=== PATIENT | female | born 1960 | race Caucasian/White ===

== ENCOUNTER → 2021-09-09 17:07 | Outpatient (CLI) | payer BC, SELFPAY ==
[2021-09-09 15:09] LABS: Alanine Aminotransferase 39 U/L (12-78); Albumin Level 4.1 g/dl (3.5-5.0); Albumin/Globulin Ratio 1.6 (1.1-1.8); Alkaline Phosphatase 73 U/L (38-126); Anion Gap 11.7 mEq/L (5-15); Aspartate Amino Transferase 30 U/L (14-36); Bilirubin,Total 0.7 mg/dl (0.2-1.3); Blood Urea Nitrogen 19 mg/dl (7-17); Calcium 9.7 mg/dl (8.4-10.2); Carbon Dioxide 25 mmol/L (22.0-30.0); Chloride 106 mmol/L (98-107); Chol/HDL Ratio 3.6 (1-3.5); Cholesterol 170 mg/dl (140-200); Estimated Glomerular Filt Rate 72 ml/min (>60); GFR (African American) 88 ML/MIN (>60); Globulin 2.6 g/dL (1.3-3.2); Glucose 145 mg/dl (74-100); HDL Cholesterol 47 mg/dl (40-60); Potassium 4.7 mmoL/L (3.5-5.1); Sodium 138 mmol/L (136-145); Total Protein,Serum 6.7 g/dl (6.3-8.2); Triglycerides 106 mg/dl (30-150); VLDL Cholesterol 21 mg/dL (0-40)
[2021-09-09 15:20] LABS: Direct LDL Cholesterol 90.38 mg/dL (100-129)
[2021-09-09 15:27] LABS: 25-OH Vitamin D, Total 53.3 ng/mL (30-100)
[2021-09-09 15:39] LABS: Thyroid Stimulating Hormone 0.21 uIU/mL (0.465-4.68)
== END ==
PROVIDERS: PCP Family Medicine; Visit Provider Family Medicine
DX: Z00.00 Encounter for general adult medical examination without abnormal findings (principal); I89.0 Lymphedema, not elsewhere classified; Z85.3 Personal history of malignant neoplasm of breast
CPT/HCPCS: 80053; 80061; 82306; 84443

== ENCOUNTER → 2022-09-16 12:05 | Outpatient (CLI) | payer BC, SELFPAY ==
[2022-09-16 18:22] LABS: Basophils % 0.4 % (0.1-2.0); Eosinophils # 0.1 K/mm3 (0.0-0.4); Hematocrit 46.5 % (37.0-47.0); Hemoglobin 14.9 g/dL (12.2-16.2); Lymphocytes # 2.2 K/mm3 (0.7-4.5); Lymphocytes % 33.2 % (10-50); Mean Corpuscular Hemoglobin 28.3 pg (27.0-31.2); Mean Corpuscular Volume 88.6 fl (81-99); Mean Platelet Volume 9.7 fl (7.4-10.4); Monocytes # 0.4 K/mm3 (0.1-1.0); Monocytes % 6.6 % (1.7-9.3); Neutrophils # 3.8 K/mm3 (1.8-7.8); Neutrophils % 58.8 % (37.0-80.0); Platelet Count 215 K/mm3 (142-424); Red Blood Count 5.24 M/mm3 (4.20-5.40); Red Cell Distribution Width 13.5 % (11.5-17.5); White Blood Count 6.5 K/mm3 (4.8-10.8)
[2022-09-16 18:50] LABS: Alanine Aminotransferase 40 U/L (12-78); Albumin Level 4.6 g/dl (3.5-5.0); Albumin/Globulin Ratio 1.6 (1.1-1.8); Alkaline Phosphatase 84 U/L (38-126); Anion Gap 11.6 mEq/L (5-15); Aspartate Amino Transferase 30 U/L (14-36); Bilirubin,Total 0.8 mg/dl (0.2-1.3); Blood Urea Nitrogen 18 mg/dl (7-17); Carbon Dioxide 29 mmol/L (22.0-30.0); Chloride 106 mmol/L (98-107); Chol/HDL Ratio 3.4 (1-3.5); Cholesterol 196 mg/dl (140-200); Estimated Glomerular Filt Rate 72 ml/min (>60); GFR (African American) 87 ML/MIN (>60); Globulin 2.8 g/dL (1.3-3.2); Glucose 119 mg/dl (74-100); HDL Cholesterol 57 mg/dl (40-60); Potassium 4.6 mmoL/L (3.5-5.1); Sodium 142 mmol/L (136-145); Total Protein,Serum 7.4 g/dl (6.3-8.2); Triglycerides 137 mg/dl (30-150); VLDL Cholesterol 27 mg/dL (0-40)
[2022-09-16 19:03] LABS: Direct LDL Cholesterol 100.87 mg/dL (100-129)
== END ==
PROVIDERS: PCP Family Medicine; Visit Provider Family Medicine
DX: E11.9 Type 2 diabetes mellitus without complications (principal); Z79.84 Long term (current) use of oral hypoglycemic drugs; Z79.899 Other long term (current) drug therapy
CPT/HCPCS: 80053; 80061; 83036; 84443; 85025

== ENCOUNTER 2023-06-14 18:00 | Outpatient (CLI) | payer MEDICARE, SELFPAY ==
[2023-06-14 18:25] LABS: Basophils # 0.1 K/mm3 (0-0.2); Eosinophils # 0.2 K/mm3 (0.0-0.4); Eosinophils % 2.2 % (0.1-12.0); Hematocrit 44.3 % (37.0-47.0); Hemoglobin 14.6 g/dL (12.2-16.2); Lymphocytes # 2.2 K/mm3 (0.7-4.5); Lymphocytes % 33.6 % (10-50); Mean Corpuscular HGB Conc 32.9 g/dL (31.8-35.4); Mean Corpuscular Hemoglobin 29.9 pg (27.0-31.2); Mean Corpuscular Volume 90.7 fl (81-99); Mean Platelet Volume 9.7 fl (7.4-10.4); Monocytes # 0.5 K/mm3 (0.1-1.0); Monocytes % 6.8 % (1.7-9.3); Neutrophils # 3.7 K/mm3 (1.8-7.8); Neutrophils % 56.4 % (37.0-80.0); Platelet Count 214 K/mm3 (142-424); Red Blood Count 4.88 M/mm3 (4.20-5.40); Red Cell Distribution Width 13.8 % (11.5-17.5); White Blood Count 6.5 K/mm3 (4.8-10.8)
[2023-06-14 18:50] LABS: Alanine Aminotransferase 39 U/L (12-78); Albumin Level 4.4 g/dl (3.5-5.0); Albumin/Globulin Ratio 1.8 (1.1-1.8); Alkaline Phosphatase 73 U/L (38-126); Anion Gap 9.8 mEq/L (5-15); Aspartate Amino Transferase 30 U/L (14-36); Blood Urea Nitrogen 16 mg/dl (7-17); Calcium 10.4 mg/dl (8.4-10.2); Carbon Dioxide 29 mmol/L (22.0-30.0); Chloride 105 mmol/L (98-107); Chol/HDL Ratio 3.3 (1-3.5); Cholesterol 180 mg/dl (140-200); Estimated Glomerular Filt Rate 72 ml/min (>60); GFR (African American) 87 ML/MIN (>60); Globulin 2.4 g/dL (1.3-3.2); Glucose 140 mg/dl (74-100); HDL Cholesterol 54 mg/dl (40-60); Potassium 4.8 mmoL/L (3.5-5.1); Sodium 139 mmol/L (136-145); Total Protein,Serum 6.8 g/dl (6.3-8.2); Triglycerides 116 mg/dl (30-150); VLDL Cholesterol 23 mg/dL (0-40)
[2023-06-14 19:01] LABS: Direct LDL Cholesterol 98.18 mg/dL (100-129)
[2023-06-14 19:17] LABS: Hemoglobin A1C 7.6 % (4.0-6.0)
[2023-06-14 19:21] LABS: Thyroid Stimulating Hormone 0.47 uIU/mL (0.465-4.68)
== END 2023-06-14 23:59 | disposition home or self-care (01) ==
LOC: LAB.DROPOF 06-15 07:52
PROVIDERS: PCP Family Medicine; Visit Provider Family Medicine
DX: E11.9 Type 2 diabetes mellitus without complications (principal); Z79.84 Long term (current) use of oral hypoglycemic drugs; Z79.899 Other long term (current) drug therapy
CPT/HCPCS: 80053; 80061; 83036; 84443; 85025

== ENCOUNTER 2023-09-23 10:16 | Outpatient (CLI) | payer MEDICARE, SELFPAY ==
[2023-09-23 19:44] LABS: Alanine Aminotransferase 59 U/L (12-78); Albumin Level 4.1 g/dl (3.5-5.0); Albumin/Globulin Ratio 1.5 (1.1-1.8); Alkaline Phosphatase 59 U/L (38-126); Anion Gap 11.9 mEq/L (5-15); Aspartate Amino Transferase 32 U/L (14-36); Bilirubin,Total 0.9 mg/dl (0.2-1.3); Blood Urea Nitrogen 24 mg/dl (7-17); Calcium 9.8 mg/dl (8.4-10.2); Carbon Dioxide 28 mmol/L (22.0-30.0); Chloride 104 mmol/L (98-107); Estimated Glomerular Filt Rate 63 ml/min (>60); GFR (African American) 76 ML/MIN (>60); Globulin 2.8 g/dL (1.3-3.2); Glucose 126 mg/dl (74-100); Potassium 4.9 mmoL/L (3.5-5.1); Sodium 139 mmol/L (136-145); Total Protein,Serum 6.9 g/dl (6.3-8.2)
[2023-09-23 20:08] LABS: Hemoglobin A1C 6.7 % (4.0-6.0)
[2023-09-23 20:39] LABS: Creatinine,Urine Random 100 mg/dL (Not Estab.); Microalbumin < 6.000 mg/L (0-16.7)
== END 2023-09-23 23:59 | disposition home or self-care (01) ==
LOC: LAB.DROPOF 09-27 10:16
PROVIDERS: PCP Family Medicine; Visit Provider Family Medicine
DX: E11.9 Type 2 diabetes mellitus without complications (principal)
CPT/HCPCS: 80053; 82043; 82570; 83036

== ENCOUNTER 2023-12-23 09:38 | Outpatient (CLI) | payer MEDICARE, SELFPAY ==
[2023-12-23 18:26] LABS: Alanine Aminotransferase 49 U/L (12-78); Albumin Level 4.3 g/dl (3.5-5.0); Albumin/Globulin Ratio 1.7 (1.1-1.8); Alkaline Phosphatase 60 U/L (38-126); Anion Gap 12.7 mEq/L (5-15); Aspartate Amino Transferase 29 U/L (14-36); Bilirubin,Total 0.9 mg/dl (0.2-1.3); Blood Urea Nitrogen 21 mg/dl (7-17); Calcium 9.8 mg/dl (8.4-10.2); Carbon Dioxide 26 mmol/L (22.0-30.0); Chloride 106 mmol/L (98-107); Estimated Glomerular Filt Rate 72 ml/min (>60); GFR (African American) 87 ML/MIN (>60); Globulin 2.5 g/dL (1.3-3.2); Glucose 122 mg/dl (74-100); Potassium 4.7 mmoL/L (3.5-5.1); Sodium 140 mmol/L (136-145); Total Protein,Serum 6.8 g/dl (6.3-8.2)
[2023-12-23 18:51] LABS: Hemoglobin A1C 6.6 % (4.0-6.0)
== END 2023-12-23 23:59 | disposition home or self-care (01) ==
LOC: LAB.DROPOF 12-24 08:24
PROVIDERS: PCP Family Medicine; Visit Provider Family Medicine
DX: E11.9 Type 2 diabetes mellitus without complications (principal)
CPT/HCPCS: 80053; 83036

== ENCOUNTER 2024-12-21 10:18 | Outpatient (CLI) | payer MEDICARE, SELFPAY ==
--- OUTSIDE RECORDS SUMMARY | 2024-11-21 12:00 | XMS_ITS | Encounter Summary ---
Author Organization [facility] Address [address] [place] [address] Care Team Providers Care Recovery Analyst Name Role Phone Demetrius Carmona MD Primary Care Provider Nam Choudhary MD Unavailable [phone] Reason for Visit * Reason Comments Follow-up Encounter Details Date Type Department Care Team (Late st Contact Info) Description 11/21/2024 1:00 PM EDT Office Visit [facility] - Hematology & Oncology, [place] [address] [place] [address] [address] [place] [address] Nam Choudhary MD [address] [facility] [address] [place], [place] [id number] Malignant neoplasm of central 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, estrogen receptor negative (CMS/HCC) (Primary Dx) Social History Tobacco Use Types Packs/Day Years Used Date Smoking Tobacco: Never Smokeless Tobacco: Never Tobacco Cessation:Counseling Given: Not Answered Comments Unknown Sex and Gender Information Value Date Recorded Sex Assigned at Not on file Legal Sex Female 2:04 PM EDT Gender Identity Not on file Sexual Orientation Not on file documented as of this encounter Last Filed Vital Signs Vital Sign Reading Time Taken Comments Blood Pressure 141/71 11/21/2024 1:02 PM EDT Pulse 79 11/21/2024 1:02 PM EDT Temperature 36.2 C (97.1 F) 11/21/2024 1:02 PM EDT Respiratory Rate - - Oxygen Saturation 99% 11/21/2024 1:02 PM EDT Inhaled Oxygen Concentration - - Weight 85.1 kg (187 lb 9.8 oz) 11/21/2024 1:02 P M EDT Height 170 cm (5' 6.93 ) 11/21/2024 1:02 PM EDT Body Mass Index 29.45 11/21/2024 1:02 PM EDT documented in this encounter Progress Notes * Nam Choudhary MD - 11/21/2024 1:00 PM EDT [facility] Hematology/Oncology Follow up Progress Note Patient ID: Ginny Carver Age: 64 y.o. (: 1960) Subjective Heme/Onc Problems ICD-10-CM 1. Malignant neoplasm of central 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, estrogen receptor negative (CMS/HCC) C50.112 Z17.1 Heme/Onc Treatment History Heme/Onc History Malignant neoplasm of central 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, estrogen receptor negative (CMS/HCC) 01/09/2008 - Cancer Staged Staging form: Breast, AJCC 8th Edition - Clinical stage from 01/09/2008: Stage IIB (cT2, cN1(sn), cM0, G3, ER-, IA-, HER2+) - Signed by Nam Choudhary MD on 11/18/2021 02/16/2008 - 06/2008 Chemotherapy Neoadjuvant [facility] x 6 06/20/2008 Surgery lumpectomy performed on the left breast (Dr. Rodriguez) 06/2008 - 01/25/2009 Chemotherapy Completion of a full year of Herceptin? 07/2008 - 08/2008 Radiation Oncology Adjuvant EBRT to the left breast and LEFT axillary region 02/2009 - 01/2010 Chemotherapy Adjuvant [facility] 3004 trial? Neratinib versus placebo. 01/2010 Surgery Axillary dissection for local recurrent disease. Three lymph nodes found with metastases 02/2010 - 08/2010 Chemotherapy Tykerb 1250 mg continuous daily/Xeloda 1500 mg po bid d1-14 q 21 days 10/2010 Surgery LEFT supraclavicular lymph node dissection at which time 7 of 13 lymph nodes were found to be involved by disease 11/2010 - 04/2011 Chemotherapy Tykerb 1250 mg continuous daily/Xeloda 1500 mg po bid d1-14 q 21 days. Stopped due to LEFT neck recurrence 04/2011 Surgery Resection of nodule LEFT neck showing poorly differentiated breast CA in 2/3 lymph nodes 05/2011 - 07/2011 Chemotherapy Tykerb + Herceptin stopped as of July 2011 for drop in LVEF 09/29/2011 - 01/12/2012 Chemotherapy Taxotere q21d Interval History The patient returns for follow-up. Since I saw the patient last, she has had no new health issues. She continues to have chronic lymphedema of the arm but has had no episodes of cellulitis over the past 12 months. She is having no unexplained pain, fatigue, or weight loss. Medications/Allergies Medications Ordered Prior to Encounter[1] Allergies[2] Objective Physical Exam height is 1.7 m (5' 6.93 ) and weight is 85.1 kg (187 lb 9.8 oz). Her temporal temperature is 97.1 ??F (36.2 ??C) (abnormal). Her blood pressure is 141/71 and her pulse is 79. Her oxygen saturation is 99%. Body mass index is 29.45 kg/m??. Body surface area is 2 meters squared. Wt Readings from Last 4 Encounters: 11/21/24 85.1 kg (187 lb 9.8 oz) 11/23/23 85.3 kg (188 lb) 11/24/22 86.5 kg (190 lb 12.8 oz) 11/18/21 83.7 kg (184 lb 8.4 oz) GENERAL APPEARANCE: Well-developed, well nourished. HEENT: External Ears, nose, and lips normal NECK: supple, no thyroid mass LYMPH NODES: Neck, axillary nodes non-palpable LUNGS: Clear to A/P, no use of accessory muscles CARDIOVASCULAR: Regular rhythm, no MGR. No LE edema noted ABDOMEN: Soft, NT/ND. No HSM. No ascites EXTREMITIES: No clubbing or cyanosis PSYCHIATRIC: Normal insight/judgement. Oriented to person, place and time SKIN: No rashes or petechia to inspection. No nodules on palpation. NEUROLOGIC: no focal weakness, gait normal. No loss of sensation BREAST: No palpable masses noted bilaterally. ECOG Performance Status ECOG 0: Fully active, able to carry on all pre-disease performance without restriction Assessment Assessment/Plan Breast cancer - Patient continues on observation. She has now been in remission for 12 years for her ER negative HER2 positive breast cancer. Unless she develops new symptoms we do not plan further imaging studies. We will see her again in 1 year. Cardiomyopathy - Most likely due to combination chemotherapy and Herceptin based therapy. She continues to be wellcompensated on her Coreg and spironolactone. Left upper extremity lymphedema - Chronic and stable. No new intervention recommended. Follow-up in 1 year. She will call with any interval problems or symptoms. Medical Decision Making Labs, pathology, notes and imaging reviewed: Total Time Spent: 32 minutes Time spent includes some or all of the following, both [id number] time and non [id number] time,but is not limited to: [x] Preparing to see the patient and reviewing records [] Discussion or coordination of care with other health foster care therapist [] Reviewing records or discussing history of plan with colleagues [x] Obtaining and/or reviewing the history [] Individual interpretation of results not billed by me [x] Performing a medically appropriate examination [x] Counseling patient and/or caregiver [] Ordering of unique Tests, Medications, Referrals, or Procedures [x] Documentation within the EHR [1] Current Outpatient Medications on File Prior to Visit Medication Sig Dispense Refill aspirin 81 mg tablet Take 81 mg by mouth in the morning. Biotin 10,000 mcg Capsule carvediloL (COREG) 12.5 mg Tablet Take 1 Tablet by mouth in the morning and 1 Tablet before bedtime. Cholecalciferol, Vitamin D3, 25 mcg (1,000 unit) Capsule cyanocobalamin, Vitamin B-12, (Vitamin B-12) 500 mcg Tablet lisinopriL (ZESTRIL) 10 mg tablet Take 1 Tablet by mouth in the morning. metFORMIN (GLUCOPHAGE) 1,000 mg tablet Take 1,000 mg by mouth in the morning and 1,000 mg before bedtime. metFORMIN (GLUCOPHAGE) 500 mg tablet Take 500 mg by mouth every 24 hours. spironolactone (ALDACTONE) 25 mg tablet No current facility-administered medications on file prior to visit. [2] Allergies Allergen Reactions Erythromycin Rash Pcn [Penicillins] Sulfa (Sulfonamide Antibiotics) documented in this encounter Plan of Treatment Upcoming Encounters Date Type Department Care Team (Late st Contact Info) Description 11/21/2025 11:40 AM EDT Appointment [facility] - [facility]ematology & Oncology, [place] [address] [facility] [address] [place], [place] [phone] Nam Choudhary MD [address] [facility] [place], [place] [id number] documented as of this encounter Visit Diagnoses Diagnosis Malignant neoplasm of central 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, estrogen receptor negative (CMS/HCC)- Primary documented in this encounter Care Teams Recovery Analyst Relationship Specialty Start Date End Date Demetrius Carmona MD PCP - General Family Medicine 07/30/15 Nam Choudhary MD [address] [facility] [place] [address] Covering Provider Hematology and Oncology 11/18/21 documented as of this encounter
--- OUTSIDE RECORDS SUMMARY | 2024-12-01 13:30 | XMS_ITS | Encounter Summary ---
Author Organization [facility] Address [address] [facility] [place] [address] Care Team Providers Care Government Service Executive Name Role Phone Demetrius Carmona MD Primary Care Provider [phone] Reason for Referral * Surgical (Routine) - AFF Authorization Not Needed Specialty Diagnoses / Procedures Referred By Baldomero t Referred To Contact Gastroenterology Diagnoses Adenomatous polyp of ascending colon Procedures COLONOSCOPY WA COLONOSCOPY FLX DX W/COLLJ SPEC WHEN PFRMD WA COLONOSCOPY FLX W/ENDOSCOPIC MUCOSAL RESECTION Mitchell Elmore MD [address] [place] [address] Phone: tel: fax: Mitchell Elmore MD [address] [place] [address] Phone: tel: fax: Referral ID Status Reason Start Date Expiration Date Visits Requested Visits Authorized [id number] AFF Authorization Not Needed 12/01/2025 1 1 Reason for Visit * Reason Comments New Patient Diarrhea Consult Encounter Details Date Type Department Care Team (Late st Contact Info) Description 12/01/2024 2:30 PM EDT Office Visit [facility] [address] [place] [address] Mitchell Elmore MD [address] [place] [address] Adenomatous polyp of ascending colon (Primary Dx) Social History Tobacco Use Types Packs/Day Years Used Date Smoking Tobacco: Never Smokeless Tobacco: Never Tobacco Cessation:Counseling Given: Not Answered Alcohol Use Standard Drinks/Week Comments Yes 0 (1 standard drink = 0.6 oz pur e alcohol) occasional Overall Financial Resource Strain (CARDIA) Answe r Date Recorded How hard is it for you to pa y for the very basics like food, housing, medical care, and heating? Not hard at all 06/08/2022 PHQ-2 Answer Date Recorded PHQ-2 Total Score 0 06/08/2022 Exercise Vital Sign Answer Date Recorde d On average, how many days pe r week do you engage in moderate to strenuous exercise (like a brisk walk)? 3 days 06/08/2022 On average, how many minutes do you engage in exercise at this level? 60 min 06/08/2022 Hunger Vital Sign Answer Date Recorded Within the past 12 months, y ou worried that your food would run out before you got the money to buy more. Never true 06/09/19 23 Within the past 12 months, t he food you bought just didn't last and you didn't have money to get more. Never true 06/08/2022 PRAPARE - Transportation Answer Date Re corded In the past 12 months, has l ack of transportation kept you from medical appointments or from getting medications? No 05/17 In the past 12 months, has l ack of transportation kept you from meetings, work, or from getting things needed for daily living? No 06/08/2022 Comments No Sex and Gender Information Value Date Recorded Sex Assigned at Not on file Legal Sex Female 2:57 AM EDT Gender Identity Not on file Sexual Orientation Not on file documented as of this encounter Last Filed Vital Signs Vital Sign Reading Time Taken Comments Blood Pressure 133/68 12/01/2024 2:28 PM EDT Pulse 69 12/01/2024 2:28 PM EDT Temperature - - Respiratory Rate 18 12/01/2024 2:28 PM EDT Oxygen Saturation - - Inhaled Oxygen Concentration - - Weight 86.2 kg (190 lb) 12/01/2024 2:28 PM EDT Height 172.7 cm (5' 8 ) 12/01/2024 2:28 PM EDT Body Mass Index 28.89 12/01/2024 2:28 PM EDT documented in this encounter Functional Status * Is the person deaf or does he/she have serious difficulty hearing? Answer Date of Assessment Author No 06/29/2017 10:00 AM Kristy Vazquez RN * Is the person blind or does he/she have serious difficulty seeing even when wearing glasses? Answer Date of Assessment Author No 06/29/2017 10:00 AM Kristy Vazquez RN * Does this person have serious difficulty walking or climbing stairs? Answer Date of Assessment Author No 06/29/2017 10:00 AM Kristy Vazquez RN * Does this person have difficulty dressing or bathing? Answer Date of Assessment Author No 06/29/2017 10:00 AM Kristy Vazquez RN * Because of a physical, mental or emotional condition, does this person have difficulty doing errands alone such as visiting a doctor's office or shopping? Answer Date of Assessment Author No 06/29/2017 10:00 AM Kristy Vazquez RN documented as of this encounter Mental Status * Because of a physical, mental or emotional condition, does this person have serious difficulty concentrating, remembering or making decisions? Answer Entry Date Author No 06/29/2017 10:00 AM Kristy Vazquez RN documented in this encounter Ordered Prescriptions Prescription Sig Dispense Quantity Refills Last Filled Start Date End Date [id number]-asb- C (PLENVU) 140-9-5.2 gram Oral Powder in Packet, SequentialIndicat ions:Adenomatous polyp of ascending colon Take 3 Packets by mouth Preprocedure for up to 1 dose. Take 1 kit per physician instructions 3 Packet 12/01/2024 documented in this encounter Progress Notes * Mitchell Elmore MD - 12/01/2024 2:30 PM EDT Images from the original note were not included. Subjective Subjective: Patient ID: Ms. Carver is a 64 y.o. female was referred by No ref. provider found here for Chief Complaint Patient presents with New Patient Diarrhea Consult HPI: She is a pleasant 64-year-old female presents today for follow-up. She was last seen in the office in 2019 for colonoscopy. Colonoscopy was notable for 2 polyps which were both adenomas diverticuli along the left colon and medium internal hemorrhoids. This was performed in November 2019. She is asked to have a repeat colonoscopy this time. She has a past medical history notable for atrial flutter, nonischemic cardiomyopathy, mitral valveprolapse, breast cancer 2011, lymphedema in the left upper extremity. She denies any dysphagia. She notes to have diarrhea with a rich food. She has gerd on occasion but infrequently. Medications Taking[1] Past Medical History[2] Surgical History[3] Family History[4] Social History[5] Allergies[6] Immunization History Administered Date(s) Administered Raman SARS-CoV-2 Vaccine 05/21/2020 Patients medications and past medical, family and social histories were reviewed and updated. Therewere no changes except as noted. Review of System: The following systems were reviewed and revealed the following in addition to any already discussedin the HPI: Constitutional: no weight loss, fever, night sweats Eyes: negative for vision changes or deficits HENT: negative for ear pain, no sore throat, no neck pain Respiratory: no cough, shortness of breath, or wheezing Cardiovascular: negative for chest pain, swelling, dyspnea on exertion Gastrointestinal: See HPI. Genitourinary: negative for urinary urgency or pain during urination Musculoskeletal: negative for weakness or focal loss motor function Integumentary: negative for rashes or other skin lesions Hematology / Lymphatics: negative and there is no easy bleeding or bruising Endocrine: negative Allergy / Immunology: negative Neuro / Psych: negative Objective Objective: Vitals: 12/01/24 1428 BP: 133/68 Pulse: 69 Resp: 18 Weight: 190 lb (86.2 kg) Height: 5' 8 (1.727 m) Body mass index is 28.89 kg/m??. Physical Exam: General: Ginny appears alert, well developed, well nourished, in no acute distress Skin: warm, well perfused and no rashes Head: Normocephalic, without obvious abnormality, atraumatic Eyes: Pupils equal, round and reactive to light and Extraocular movements intact ENT: ENT exam normal, mucous membranes moist Neck: neck is supple and there is full active range of motion Lungs: clear to auscultation bilaterally Cardiac: S1, S2 normal, no murmur, rub or gallop, regular rate and rhythm Abdomen: abdomen is soft, nontender, and nondistended without hepatosplenomegaly or masses, normoactive bowel sounds are present, there are no peritoneal signs Musculoskeletal/Ext: normal muscle bulk with no contractures or deformities Neurological: normal without focal findings, mental status, speech normal, alert and oriented x3, ARIC and reflexes normal and symmetric Assessment and Plan: Diagnoses and all orders for this visit: Adenomatous polyp of ascending colon - COLONOSCOPY; Future - [id number] (PLENVU) 140-9-5.2 gram Oral Powder in Packet, Sequential; Take 3 Packets by mouth Preprocedure for up to 1 dose. Take 1 kit per physician instructions Dispense: 3 Packet; Refill: 0 No follow-ups on file. Mitchell Elmore MD [1] Outpatient Medications Marked as Taking for the 12/01/24 encounter (Office Visit) with Mitchell Elmore MD Medication Sig Dispense Refill acetaminophen 650 mg Oral Tab Take 650 mg by mouth every 4 hours as needed. Biotin 10,000 mcg Oral Capsule Take 1 Cap by mouth daily. carvediloL (COREG) 12.5 mg Oral Tablet TAKE 1 TABLET BY MOUTH 2 TIMES A DAY 200 Tablet 2 cholecalciferol, vitamin D3, 1,000 unit Oral Tablet Take 1 Tab by mouth daily. CYANOCOBALAMIN, VITAMIN B-12, (VITAMIN B12 ORAL) Take 1 Tab by mouth daily. lisinopriL (PRINIVIL;ZESTRIL) 10 mg Oral Tablet Take 1 Tablet by mouth daily. 90 Tablet 3 metFORMIN (GLUCOPHAGE) 1,000 mg Oral Tablet spironolactone (ALDACTONE) 25 mg Oral Tablet TAKE 1/2 TABLET BY MOUTH DAILY 45 Tablet 3 torsemide (DEMADEX) 10 mg Oral Tablet Take 1 Tab by mouth daily as needed (Edema). 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 Long review: EF 40-45%, mild LV dil History of chemotherapy 01/2008; 09/2011 Dr. Choudhary ; taxotere,carbo, herceptin; then zeloda; then taxotere Hypertension lost weight and stopped med 03/2010 Lymphedema of arm 02/2012 left arm, has also had cellulitis in the left arm in the past, NO IV STICKS, BP, OR BLOOD DRAWS IN LEFT ARM Mitral valve prolapse Motion sickness Postoperative nausea and vomiting Radiation [address] Esparza Seroma 06/04/2011 Snores on occassion Tachycardia paroxsymal atrial flutter [3] Past Surgical History: Procedure Laterality Date BREAST BIOPSY 2007 left breast BREAST SURGERY 2009 segmentectomy and SLND CATHETER REMOVAL N/A 06/03/2017 Port a Cath Removal; Surgeon: Jagdeep Rodriguez MD; Location: [facility]; Service: General SECTION LAPAROSCOPY LYMPH NODE BIOPSY 2007 sentinel lymph node LYMPH NODE DISSECTION Left 01/19/2010 axillary lumph node dissection LYMPH NODE DISSECTION 11/12/2010 supraclavicular lymph nodes removed NECK SURGERY Left 05/15/2011 left neck dissection TUNNELED VENOUS PORT PLACEMENT 2007 [4] Family History Problem Relation Age of Onset Heart Disease Mother Arrhythmia Mother Heart Disease Father Diabetes Father Heart Surgery Father High Cholesterol Father Diabetes Maternal Grandmother Cancer Paternal Grandmother Heart Disease Paternal Grandmother Hypertension Brother Anesth Problems Neg Hx [5] Social History Tobacco Use Smoking status: Never Smokeless tobacco: Never Vaping Use Vaping status: Never Used Substance Use Topics Alcohol use: Yes Comment: occasional Drug use: No [6] Allergies Allergen Reactions Erythromycin Rash Penicillins Rash Sulfur Dioxide Myalgia Keflex [Cephalexin] Rash And ears swelled up Sulfa (Sulfonamide Antibiotics) Other (See Comments) Joint pain documented in this encounter Miscellaneous Notes * Patient Instructions - Mitchell Elmore MD - 12/01/2024 2:30 PM EDT Patient Name: Ginny Wadsworth Procedure: Physician: Location: Date: Arrival Time: Procedure Time: Please have no solid food the day prior to your procedure, and nothing by mouth after on (including gum, mints, nicotine or tobacco products) Doing so can delay or cancel your procedure. PLENVU Bowel Preparation Please read the entire pre instructions at least one week before your procedure. Do NOT follow the instructions that come with the preparation. If you have any questions, please call our office: Office Number: [phone] Procedure [phone] between 8 AM and 4:30 PM [facility]: [phone] between 6 AM and 2:30 PM Please note that not following these instructions may result in cancellation/rescheduling of the procedure. Please contact the office if there have been any changes in your medical condition from thetime you had scheduled your procedure to the date of your procedure (including but not limited to heart attack, stroke or beginning taking blood thinning medication). Not doing so may result in cancellation of your procedure. If you are unable to keep your appointment, please provide at least 72-hours notice. Not doing so will result in a $100 cancellation/no show fee. If you have had an upper respiratory infection (i.e. sinus infection, Covid-19, Flu A or B, bronchitis) within 14 days of your procedure, please call to reschedule. Not doing so may result in a cancellation the day of the procedure. To cancel you may call our CANCELLATION LINE at [phone] and leave a message. You may also call [phone] to speak with Procedure Scheduling. Your safety is our primary concern. Please arrange a responsible adult (age 18 or over) to drive you to our facility, stay at our facility during your procedure, and to drive you home when you are discharged. Please note that if your responsible republican is not able to remain on the facility property during the procedure, your procedure will not be able to be performed. Patients will not be admittedunless there is a responsible adult present. Please anticipate remaining at our facility for 2-4 hours. You are to have a responsible adult with you until the effects of the sedation have worn off, which may take several hours. Patients will not be permitted to go home by taxi/Uber/Lyft unless a res ponsible adult is with them. If you have a Port-A-Cath that you would like us to use for your procedure, it is our policy that the Port-A-Cath must be flushed within 30 days of your procedure, or we will not be able to access the port. A thorough cleansing of the bowel is essential for a successful exam. Please read and follow all the instructions carefully. Be sure to follow our instructions exactly as they are written. It is veryimportant that you finish all of the prep, even if your results are clear. An inadequate prep couldresult in rescheduling your procedure or the interval of the next procedure could be reduced, so please reach out if your prep is not working or if you are unable to tolerate the prep at [phone]. 7 or more days prior to the procedure: supervisor belt and link assembly Plenvu from your pharmacy Purchase four chewable Simethicone tablets (i.e. Gas-X, available over the counter) Arrange for a responsible republican (18 or over). If you do not have a responsible republican, we will cancel the procedure. Please remember that by law, you cannot drive the rest of the day after your procedure. Read and familiarize yourself with the preparation instructions below. If you have any questions regarding your preparation instructions, please call [phone]. Do NOT follow the instruction on the preparation box. If you are taking an IRON supplement, please hold for 7 days prior to your procedure date Please note if you take the medication Phentermine (i.e. Adipex, Eula-Cap, Suprenz, T-diet, Zantryl,Lomaira) you will need to stop this medication 7 full days prior to your procedure. Not doing so may result in a cancellation the day of your procedure. This is up to your physicians discretion. If you are taking medications for weight loss/diabetes, oral or injectables, you will need to hold them for 8 full days prior to your procedure date. These include but are not limited to GLP-1, semaglutides and dulaglutides (i.e. Trulicity, Ozempic, Wegovy, Rybelsus, etc.), and Contrave. Not doing so may result in a cancellation the day of your procedure. If you have any questions about these medications, please reach out to the office. This is up to your physicians discretion. Review and plan dietary needs during prep time. Please avoid nuts, seeds or berries with seeds the entire week leading up to your procedure. IF your procedure is scheduled for [place], they have additional recommendations for medication holds. Please follow the additional medication holds below. Otherwise, please follow the instructions thoroughly. 4 days prior to your procedure, hold steglatro 3 days prior to your procedure, hold Jardiance, Invokana, and Farxiga Do NOT take your SANTHOSH inhibitors (ends in PRIL) or angiotensin receptor blockers (ends in SARTAN) onthe day of your procedure. IF YOU TAKE BLOOD THINNING MEDICATION: We are verifying with the ordering provider that you may hold your blood thinner. Please wait until you hear from us before stopping your medication. The scheduling department will call you to confirm once we have received the clearance from the ordering provider. After that has been completed: Take your last dose of on . (You will be instructed when to resume your blood thinner following your procedure. Begin a clear-liquid diet one day prior to your procedure Begin a clear-liquid diet two days prior to your procedure Examples of clear liquids: coffee or tea (NO milk, creamer, or sugar/sweeteners) Dietary Supplements: Boost or Ensure, any flavor except chocolate or strawberry. No supplement after midnight. Plain Jell-O/Popsicles (NO red or purple). Clear soups and/or broth (strain all vegetables and noodles). Clear fruit juice (i.e. apple or white grape juice, NO orange or grapefruit juice). Sorbet that does NOT contain milk or chunks of fruit. Soft drinks / Valentina Stormy / Gatorade (NO red or purple). NO milk, added sugar, grapefruit juice, tomato juice. Do NOT drink alcohol. 1 day prior to the procedure: Start on a clear liquid diet when you get up and continue all day. Do not eat any solid foods. Do not consume anything that is red. Throughout the day, make sure to drink at least 8 glasses (2 quarts) of fluids. If you have diabetes: Drink dietary supplements throughout the day up until midnight (no chocolate or strawberry). Between 4 PM and 6PM: Use the mixing container to mix the contents of the dose 1 pouch with at least 16 oz of water by shaking or using a spoon until it is completely dissolved. This may take up to 2-3 minutes. Slowly finish the dose within 30 minutes. Refill the container with at least 16 oz of clear liquid. Again, slowly finish all of it within 30 minutes. Take 2 Simethicone tablets with the last glass. If you experience nausea, cramping or bloating, stop drinking for 30 minutes and then start again. Continue to drink clear liquids until bedtime. It is important that you drink large amounts of liquid in order to keep your body hydrated and for continued colon cleansing. On the day of your procedure: 5 hours prior to your scheduled arrival time: Use the mixing container to mix the contents of the dose 2 pouch with at least 16 oz of water by shaking or using a spoon until it is completely dissolved. This may take up to 2-3 minutes. Slowly finish the dose within 30 minutes. Refill the container with at least 16 oz of clear liquid. Again, slowly finish all of it within 30 minutes. Take 2 Simethicone tablets with the last glass. STOP drinking any liquids 3 hours prior to your scheduled arrival time. Your arrival time is not your procedure time. You are asked to arrive early to allow time for registration and preparation. TAKE your heart and blood pressure medications the morning of the procedure. TAKE your seizure medications the morning of the procedure. Do NOT take your blood thinner. If you are diabetic: Do not take your oral medication today. Take ?? of long-acting insulin Hold regular insulin Bring a dose of regular insulin to the procedure with you. Refrain from ALL nicotine and tobacco products, as well as THC products the day of your procedure. If you wear dentures, avoid using adhesive the day of the procedure as the dentures may be removed for the procedure. If you use an inhaler, please bring it with you the day of your procedure. Be advised that ALL premenopausal women will be required to provide a urine specimen for testing prior to the procedure. Please wear loose fitting, comfortable clothing, and low-heeled shoes. We recommend a short sleeve shirt, to make starting your IV easier. If you wear glasses, these will be removed before your procedure. A basin will be provided, but youmay bring a case if you would like. Please leave your valuables at home; we are not responsible for broken or lost items. Please note that every procedure experience is different and this one may not be the same as your experience with other procedures. IMPORTANT You will be asked to acknowledge receipt of this information on the day of your procedure. Please bring the following on the day of your procedure: This pamphlet and your prep instructions ALL of your Medical Insurance Cards Your drivers license with picture ID A copy of your Power of Welding Operator (POA if necessary) If applicable: your inhaler; contact lens container and solution (if you need to remove them); glasses case; hearing aid(s) and container to put them in, if removed; any medication you have started or changed since your last contact with the endoscopy center A Responsible Adult (age 18 or older) to stay here at the facility during your visit as well as someone to drive you home if not your Responsible Adult Bring or wear socks for your own comfort About the facility: Patient entrance is under the lower-level canopy. There is not an entry from the upper-level to thelower level. The facility doors open at 6:15 AM M-F Wi-Fi and a television are present in the waiting area. Please be advised no photography or video recording may take place in the patient care areas. We are a NON-SMOKING campus (inside and outside the facility) After the Procedure: You should expect to be in the Recovery Area 30-45 minutes. You will be seen by your physician prior to discharge. Your Responsible Adult will be brought to the Recovery Area (unless you request not to have them with you) prior to discussing the results of your procedure and giving instructions. You may eat whatever you want after discharge unless your doctor has ordered otherwise. Due to the sedation, we prefer that you do not go into a restaurant. Sedation may cause you to feel drowsy and unsteady. You should review your Post Procedure Instructions once you are fully awake. You should be able to return to your normal activity the day after your procedure. You should receive a call from our staff the next business day. If you are NOT experiencing problems, you DO NOT have to return this call. If you are having problems or questions, please call [phone] or in the event of an emergency call 911. Advance directives This serves as your notice that this facility does not honor ???Do Not Resuscitate?? (DNR) directive in an advanced directive. If you do not agree with this policy, let us know and you may be scheduled at another location. Frequently asked questions: Is there any way I can make this taste better? You can try sucking on hard candy or rinse your mouth with water or mouthwash. Why avoid red liquids? The red color can persist in the colon and potentially look like blood. One of the medications I was instructed to take the morning of my procedure is red. Can I take it? Medications should be taken the morning of your procedure regardless of the color. I feel like vomiting and do not think I can drink any more. What should I do? It is important that you continue to drink the solution if possible. Without a clean bowel, the doctor will not be able to thoroughly examine your colon. You can try to stop drinking for 30 minutes, then resume. If you dovomit, wait 30-60 minutes then begin drinking the solution again. If vomiting persists, call us andhave the phone number of an open pharmacy in case we need to call a new prescription. I drank a lot of the solution and have not gone to the bathroom yet. What should I do? Keep drinking and be patient. Most people have a bowel movement after an hour, however, for some it may take several hours. I am taking the prep and now having loose, watery stool. Do I still need the rest of the prep? Yes,you may have solid stool higher in the colon that still needs to be eliminated. I already have diarrhea before taking the prep, do I still need to take the laxative? Yes, you musttake the entire prep as listed above. Your colon is approximately six feet long. The entire colon must be emptied for your physician to see the colon clearly. I see yellow color in the toilet bowl and a few flecks. What do I do now? If you drank the entire solution or if your last bowel movements were clear enough that you were able to see the bottom of the toilet, you should be fine. It is okay if you have some flecks of material. The yellow color is a result of bile that normally colors the feces. This should not interfere with the examination. My bottom is sore. What can I do? To clean the area, avoid rubbing. Gently pat with a wet washcloth. Can I drink alcoholic beverages? Alcoholic beverages can cause dehydration, and some francheska thin your blood. Therefore, we strongly suggest that you do not drink any alcoholic beverages prior to your procedure. Can I chew gum or suck on candy? Yes, up to 3 hours prior to your scheduled arrival time. Nothing with soft centers or red color. What if I am still passing stool the morning of the test? If it is solid stool, pieces of solid stool or brown liquid, please call the office. Can I brush my teeth? Please do. You may brush your teeth and rinse your mouth without swallowing. Can I have chicken soup? You can have broth, no noodles, chicken or vegetables are allowed. Can I have the colonoscopy if I am on my period? Yes, the procedure can still be performed. We ask that you use a tampon, if possible, but it is not necessary. WELCOME TO ENDOSCOPY CENTER Physician Ownership Disclosure: [facility], [facility] is owned and operated by [facility], therefore, your physician may have a financial interest in this facility. Insurance: If you have insurance coverage, your insurance company will receive two separate claims. One for the physicians which will also include a charge for any biopsies or specimens collected and one for the Facility fee. Your insurance company may also receive claims from independent laboratory, anesthesia, and pathology. As with your insurance company, you may receive bills for any remaining balance and /or outpatient deductibles and co-pays, resulting from the facility fee, physicians fee, an independent laboratory, anesthesia and pathology. Procedures available: [facility] performs procedures, such as: EGD Esophageal Dilation Colonoscopy Flexible Sigmoidoscopy Small Bowel Enteroscopy Liver Biopsy Gastronomy tube replacement Hemorrhoid banding EUS (Endoscopic Ultrasound) Endoscopic capsule placement Licensure and accreditation: [facility] is licensed by the [facility] as an Ambulatory Surgery Center (ASC) and is accredited by the Accreditation Association for Ambulatory Healthcare (AAAHC). We are also certified by the centers for Medicare and Medicaid Services (CMS) as a participant in a Medicare program. [facility] was recognized by the [place] [employer] (ASGE) for promoting quality in endoscopy. Physician credentials: All physicians providing care at [facility] are board eligible or board certified by the certifying board of gastroenterology and approved and credentialed by the governing board of [facility]. Summary of Patient rights - further information available at facility To be considerate, respectful, and receive quality care To be informed of all available services and to receive the services regardless of age, race, buddhism, sex, sexual orientation, marital status, or national origin To obtain complete and current medical information, including explanation of treatment and prognosis in terms that can reasonably be understood To receive from his/her physician, the information necessary to give informed consent prior to any procedure To have the right to change providers if other qualified providers are available To expect that within its capacity, the facility must make a reasonable response to the request select specialty hospital To obtain information as to any relationship of this Facility to any other healthcare institution To refuse treatment and be informed of the consequences of this refusal To privacy concerning his or her medical treatment To refuse to participate in experimental research To receive an itemized copy of his or her account statement upon request regardless of source of payment To approve or refuse the release or disclosure of the contents of his or her medical record To know which Facility rules and regulations apply to his or her conduct To express complaints about the care and services provided, voice grievances and recommend changes in policies and services to the center's staff or nurse associate program manager, please call [phone] without fear of reprisal. Patients will receive follow up via phone or written communication. Patients may also contact the [place] Board of Medical Licensure or visit: [email or web address].medicare.gov/Omsbudsman/activities.asp. Patients may also contact the Office of Space Studies Faculty Member at [phone] or submit in grievance in writing to: Office of Space Studies Faculty Member - [facility] [address] - [place] [address] Patient responsibilities: Provide information regarding health history including but not limited to: medications (including over the counter and diet supplements, allergies and sensitivities) and update changes as they occur.If any changes in your medical status arise between the time of scheduling the procedure and the procedure date, we ask that you notify our office. Show consideration to others by being respectful to our healthcare professionals, staff, and other patients Cooperate with their physicians and the facility staff, following policies and procedures Understand and follow the course of treatment directed and participate in care. Inform staff how they feel and their needs Discuss additional consultation Provide the facility with complete and updated insurance and financial information To provide a responsible adult (aged 18 or older) to accompany them home after sedation To be responsible for keeping appointments and notifying if unable to do so documented in this encounter Plan of Treatment Upcoming Encounters Date Type Department Care Team (Late st Contact Info) Description 04/27/2025 9:45 AM EDT Office Visit [facility] [address] [place] [address] Nora Long DO [address] [place] [address] documented as of this encounter Goals Goal Patient Goal Type Associated Problems Recent Progress Patient-Stated? Author Breast Health Breast Health On track( 021 8:32 AM EDT) No Diane Bruce, SHELBY Note: Patient will be compliant with monthly Self Breast Exams and is aware of to who to contact for any unusual or concerning findings. documented as of this encounter Results * COLONOSCOPY (12/05/2024 7:41 AM EDT) Anatomical Region Laterality Modality Endoscopy Narrative 12/05/2024 7:43 AM EDT Table formatting from the original result was not included. Findings Four sessile and adenomatous-appearing polyps measuring 5-9 mm in the ascending colon, transverse colon and sigmoid colon; performed cold snare with complete en bloc removal and retrieved specimen. Moderate diverticulosis with few scattered diverticula in the mid descending colon and mid sigmoid colon; no bleeding was observed. Two internal medium, protruding (grade 2) hemorrhoids; no bleeding was observed. Recommendation Repeat colonoscopy in 3 years, due: 12/05/2027 Recommend a high fiber diet. Follow up with pathology results. If no results in 4 weeks, please call the office at [phone]. Office follow up as needed Pre-Procedure Diagnosis / Indication Adenomatous polyp of ascending colon Post-Procedure Diagnosis None Staff Staff Role Sofia Frazier Nurse Mitchell Elmore MD Performing Provider Cassie Majano CRNA FIELD MARKETER Medications See Anesthesia Record. Preprocedure A history and physical has been performed, and patient medication allergies have been reviewed. The patient's tolerance of previous anesthesia has been reviewed. The risks and benefits of the procedure and the sedation options and risks were discussed with the patient. All questions were answered and informed consent obtained. ASA 2 - Patient with mild systemic disease Details of the Procedure The patient underwent monitored anesthesia care, which was administered by an anesthesia professional. The patient's blood pressure, heart rate, level of consciousness, oxygen saturation, respirations, ECG and ETCO2 were monitored throughout the procedure. A digital rectal exam was performed. The scope was introduced through the anus and advanced to the cecum. Retroflexion was performed in the rectum. Bowel prep was adequate. The patient experienced no blood loss. The procedure was not difficult. The patient tolerated the procedure well. There were no apparent adverse events. Patient provided education and educated on specific discharge instructions. Patient educated on medications given during the procedure and new medications for discharge. Patient verbalizes understanding of discharge education. Patient stable and awaiting transport for discharge. Events Procedure Events Event Event Time ENDO SCOPE IN TIME 12/05/2024 7:24 AM ENDO CECUM REACHED 12/05/2024 7:27 AM ENDO SCOPE WITHDRAW BEGIN 12/05/2024 7:27 AM TSG LUME TI REACHED 12/05/2024 7:28 AM ENDO SCOPE OUT TIME 12/05/2024 7:41 AM Specimens ID Type Source Tests Collected by Time 1 : Tissue Colon TSG PATHOLOGY ORDER Mitchell Elmore MD 12/05/2024 0742 Mitchell Elmore MD ENDOSCOPY PROCEDURE ORDERAB LES Final Result documented in this encounter Visit Diagnoses Diagnosis Adenomatous polyp of ascending colon- Primary Adenomatous polyp of ascending colon documented in this encounter Historical Medications * This list may reflect changes made after this encounter. Medication Sig Dispense Quantity Refills Last Filled Start D ate End Date metFORMIN (GLUCOPHAGE) 1,000 mg Oral Tablet 09/29/2024 added in this encounter Care Teams Government Service Executive Relationship Specialty Start Date End Date Demetrius Carmona MD PCP - General 03/24/10 documented as of this encounter
--- OUTSIDE RECORDS SUMMARY | 2024-12-05 05:20 | XMS_ITS | Encounter Summary ---
[facility] Address [address] [place] [place] [address] Care Team Providers Care Wireless Consultant Name Role Phone Demetrius Carmona MD Primary Care Provider [phone] Reason for Referral * Surgical (Routine) - AFF Authorization Not Needed Specialty Diagnoses / Procedures Referred By Baldomero huff Referred To Contact Gastroenterology Diagnoses Adenomatous polyp of ascending colon Procedures COLONOSCOPY OH COLONOSCOPY FLX DX W/COLLJ SPEC WHEN PFRMD OH COLONOSCOPY FLX W/ENDOSCOPIC MUCOSAL RESECTION Mitchell Elmore MD [address] [place] [address] Phone: tel: fax: Mitchell Elmore MD [address] [place] [address] Phone: tel: fax: Referral ID Status Reason Start Date Expiration Date Visits Requested Visits Authorized [id number] AFF Authorization Not Needed 12/01/2025 1 1 Reason for Visit * Surgical (Routine) - AFF Authorization Not Needed Specialty Diagnoses / Procedures Referred By Contchamp huff Referred To Contact Gastroenterology Diagnoses Adenomatous polyp of ascending colon Procedures COLONOSCOPY OH COLONOSCOPY FLX DX W/COLLJ SPEC WHEN PFRMD OH COLONOSCOPY FLX W/ENDOSCOPIC MUCOSAL RESECTION Mitchell Elmore MD [address] [place] [address] Phone: tel: fax: Mitchell Elmore MD [address] [place] [address] Phone: tel: fax: Referral ID Status Reason Start Date Expiration Date Visits Requested Visits Authorized [id number] AFF Authorization Not Needed 12/01/2025 1 1 Encounter Details Date Type Department Care Team (Latest Contact Info) Description 12/05/2024 6:20 AM EDT - 12/05/2024 11:59 PM EDT Hospital Encounter [facility] [address] [place] [address] Mitchell Elmore MD [address] [place] [address] Adenomatous polyp of ascending colon Discharge Disposition: Home or Self Care Social History Tobacco Use Types Packs/Day Years Used Date Smoking Tobacco: Never Smokeless Tobacco: Never Tobacco Cessation:Counseling Given: Not Answered Alcohol Use Standard Drinks/Week Comments Yes 1 (1 standard drink = 0.6 oz pur e alcohol) Rarely Overall Financial Resource Strain (CARDIA) Answe r [...] things needed for daily living? No 06/08/2022 Sexually Active Control Partners Comments Yes Post-menopausal Male Comments No Sex and Gender Information Value Date Recorded Sex Assigned at Not on file Legal Sex Female 2:57 AM EDT Gender Identity Not on file Sexual Orientation Not on file documented as of this encounter Last Filed Vital Signs Vital Sign Reading Time Taken Comments Blood Pressure 146/76 12/05/2024 8:00 AM EDT Pulse 76 12/05/2024 8:00 AM EDT Temperature 36.2 C (97.2 F) 12/05/2024 6:28 AM EDT Respiratory Rate 18 12/05/2024 8:00 AM EDT Oxygen Saturation 95% 12/05/2024 8:00 AM EDT Inhaled Oxygen Concentration - - Weight 83.9 kg (185 lb) 12/05/2024 6:28 AM EDT Height 170.2 cm (5' 7 ) 12/05/2024 6:28 AM EDT Body Mass Index 28.98 12/05/2024 6:28 AM EDT documented in this encounter Functional Status * Is the person deaf or does he/she have serious difficulty hearing? Answer Date of Assessment Author No 06/29/2017 10:00 AM Kristy Vazquez RN * Is the person blind or does he/she have serious difficulty seeing even when wearing glasses? Answer Date of Assessment Author No 06/29/2017 10:00 AM DEEJAYT Kristy Beauchamp RN * Does this person have serious [...] Kristy Vazquez RN documented in this encounter Discharge Instructions * Discharge Instructions* Agnes Lane RN - 12/05/2024 7:48 AM EDT Images from the original note were not included. Repeat colonoscopy in 3 years, due: 12/05/2027 Recommend a high fiber diet. Follow up with pathology results. If no results in 4 weeks, please call the office at [phone]. Office follow up as needed IT IS VERY IMPORTANT THAT YOU FOLLOW THESE INSTRUCTIONS: ACTIVITY: The sedative medications generally wear off quickly, but they may make you less alert than normal. Today should be a day of rest. DO NOT drive a car, undertake vigorous exercise, or operatemachinery today. DO NOT sign any legal documents or make any important decisions. You may resume normal activity the day after your procedure. DIET: You may resume your usual diet unless directed otherwise. It is encouraged that you drink plenty of fluids throughout the day to help replenish lost fluids. DO NOT consume alcoholic beverages until the following day due to the residual effects of the administered sedation. MEDICATIONS: Resume home medications unless the physician indicates otherwise in the recommendations listed above. WHAT TO EXPECT FOLLOWING YOUR PROCEDURE: You may feel gas or cramps for a few hours. This is due to the air that was introduced into the colon during your procedure. You should start to expel gas before you leave the facility and will continue to do so throughout the remainder of the day. However, if you have abdominal (stomach) pain or swelling, please call our office. You may notice a few drops of blood in the toilet or on the toilet paper following your procedure. This is caused by irritation to the bowel during the procedure and is not a problem. However, if youexperience heavy bleeding or if the bleeding persists for three or more days following the procedure, please contact our office. If you develop a fever greater than 101 degrees or chills during the next 48 hours, please contact our office. Please monitor your IV site closely for any post removal complications. You may or may not have received medications that are classified as vesicants (medications that can cause tissue damage). Examples of such medications used at [facility] include dextrose, epinephrine, esmolol, lorazepam, phenylephrine, and/or promethazine. The medications you received today will be listed on the first page of your discharge instructions. Please contact our office immediately if any of the following occur: Red streaks on your skin near the IV site Skin at the IV site turns dark or peels Fluid, blood, or pus leaking from the IV site Swelling, pain or redness at the IV site that doesn???t get better or gets worse Numb, tight, or cool feeling at the IV site Blisters or bruises on your skin at the IV site Fever of 100.4 or higher You may feel nauseated today. This may occur due to the medications administered for your procedure. This should resolve within a few hours. If your nausea continues for more than 24 hours, please contact our office. Do not use enemas or suppositories unless you have discussed this with your physician. Contact our office at [phone] or [phone] if questions or problems arise. Our office hoursare 8:00 am to 5:00 pm Wednesday through Wednesday. A practitioner is cotton chopper outside of office hours foremergency phone calls at [phone] or [phone] Biopsies are used to evaluate many things and do not indicate that cancer was found. They are used to help determine the cause of symptoms. All biopsies will be reviewed by a pathologist. The resultsmay not be available for 2-3 weeks. Follow up on the biopsy results as instructed by your physician. After you have completely recovered from your sedation, please review your discharge instructions. You may not remember speaking with your physician following your procedure due to the amnesic effects of the sedation. In efforts to provide continuity of care, you will receive a follow up phone call from our [facility] the following day (or on Wednesday should your procedure fall on Wednesday). If you are unavailable to accept the call and if permissible, according to your HIPAA form on file, we will leave a message. You are not required to return the call unless you have questions or concerns. If the HIPAA form that is on file does not permit our facility to leave a message, we will not do so. We strive to provide compassionate, high quality, cost effective care to our patients and to make your experience as comfortable as possible. We value your opinion and encourage you to offer commentsor suggestions by completing a brief online survey (via secured connection) that will be emailed toyou within a week your procedure from [employer]. Your input contributes to our facility's process of continually reviewing and improving patient satisfaction. We thank you in advance for your feedback. Patient Education High Fiber Diet About this topic Dietary fiber helps many illnesses. It can help you if you cannot have a bowel movement or if you have loose stools. Fiber can also lower your risk of diabetes and heart disease. Fiber can help with weight loss by helping you feel marlow after meals. You can find fiber in fruits, vegetables, nuts and seeds, whole grains, and legumes. The fiber is the part of the plant food that your body cannot break down and absorb. It passes through your stomach, small bowel, colon, and out your body. There are two kinds of fiber: Insoluble and soluble fiber. Insoluble fiber helps you pass foods through your digestive system. Insoluble fiber can help you with hard stools. Soluble fiber draws waterin and turns it into a gel-like form making digestion slow down. Both are important. What will the results be? A high fiber diet can help you with bowel problems like stools that are too hard or too loose. It can also help prevent hemorrhoids and other colon problems. A high fiber diet can also help control your weight and lower blood sugar and cholesterol levels. What changes to diet are needed? The amount of fiber you need is based on your age, gender, and health. Try to get 20 to 35 grams of fiber in your diet each day. Most people in the [place] only eat 15 grams of fiber daily. Drink at least 8 cups (1920 mL) of fluid each day. When is this diet used? Your doctor may talk with you about this diet if you have belly problems. Who should use this diet? Older children, young people, and adults can have this diet. Who should not use this diet? Some people should not use this diet. Check with your doctor if you have: Diverticulitis Active Crohn's disease Ulcerative colitis Bowel inflammation Certain types of GI surgery Talk to your child's doctor before starting your child on a high fiber diet. What foods are good to eat? To get the most from fiber in your diet, eat a wide variety of high fiber foods. Some examples are: Vegetables like: Spinach Peas Artichoke Sweet potatoes with skin Broccoli Fruits like: Raspberries Blueberries Blackberries Apples with skin Dried fruits Grains like: Oat bran Barley Whole wheat products Wheat bran Dried beans and nuts like: [place] seeds Almonds Black beans Chickpeas What problems could happen? Sudden increase of fiber intake can lead to gas, pain, fullness in your belly, and loose stools. Increase fiber gradually while drinking plenty of fluids. Do not eat too much fiber. Your body will not take in vitamins and minerals as well if you eat too much fiber. When do I need to call the doctor? Health problem is not better or you are feeling worse. Helpful tips Start slow as you add more fiber to your diet. This may help prevent gas or cramps. Try to eat the same amount of fiber each day. Aim to get your fiber from nutritious foods. Supplements do not offer the same benefits as food. Read food labels with care to learn how much fiber is in the food you are eating. If possible, do not peel fruits or vegetables before you eat them. Eating the peel gives you more fiber. Where can I learn more? Eat Right https://www.eatright.org/food/nsmauyiv-kxp-akkyebtispg/ulotp-ck-hrbmufnd-and-nut rients/drrv-dsns-xs-mesuq-jayoc-ml-awhj-tmlwm-lwlk Last Reviewed Date 2020-11-07 Consumer Information Use and Disclaimer This information is not specific medical advice and does not replace information you receive from your health care provider. This is only a brief summary of general information. It does NOT include all information about conditions, illnesses, injuries, tests, procedures, treatments, therapies, discharge instructions or life-style choices that may apply to you. You must talk with your health care provider for complete information about your health and treatment options. This information should not be used to decide whether or not to accept your health care provider???s advice, instructions or recommendations. Only your health care provider has the knowledge and training to provide advice that is right for you. Copyright Copyright ?? 2020 [employer] and its affiliates and/or licensors. All rights reserved. documented in this encounter Medications at Time of Discharge acetaminophen 650 mg Oral Tab Take 650 mg by mouth every 4 hours as needed. 03/08/2012 aspirin 81 mg Oral Tablet, Delayed Release (E.C.) Take 81 mg by mouth daily. Biotin 10,000 mcg Oral Capsule Take 1 Cap by mouth daily. carvediloL (COREG) 12.5 mg Oral Tablet TAKE 1 TABLET BY MOUTH 2 TIMES A DAY 200 Tablet 2 10/02/2024 cholecalciferol, vitamin D3, 1,000 unit Oral Tablet Take 1 Tab by mouth daily. CYANOCOBALAMIN, VITAMIN B-12, (VITAMIN B12 ORAL) Take 1 Tab by mouth daily. lisinopriL (PRINIVIL;ZESTRI L) 10 mg Oral Tablet Take 1 Tablet by mouth daily. 90 Tablet 3 10/17/2024 metFORMIN (GLUCOPHAGE) 1,000 mg Oral Tablet 09/29/2024 metFORMIN (GLUCOPHAGE) 500 mg Oral Tablet Take 1,000 mg by mouth 2 times daily. 06/23/2022 [id number]-asb -C (PLENVU) 140-9-5.2 gram Oral Powder in Packet, SequentialIndica tions:Adenomatou s polyp of ascending colon Take 3 Packets by mouth Preprocedure for up to 1 dose. Take 1 kit per physician instructions 3 Packet 12/01/2024 spironolactone (ALDACTONE) 25 mg Oral Tablet TAKE 1/2 TABLET BY MOUTH DAILY 45 Tablet 3 10/17/2024 torsemide (DEMADEX) 10 mg Oral Tablet Take 1 Tab by mouth daily as needed (Edema). 30 Tab 5 10/06/2017 documented as of this encounter Discharge Disposition Disposition Code Departure Means Destination Home or Self Care documented in this encounter Progress Notes * Cassie Majano CRNA - 12/05/2024 7:00 AM EDT Images from the original note were not included. Patient: Ginny Wadsworth Age: 64 y.o. Sex: female Vitals: Vitals: 12/05/24 0740 BP: Pulse: 82 Resp: Temp: SpO2: 100% Planned Procedure: COLONOSCOPY Surgical History: Surgical History[1] Allergies: Allergies[2] Medications: Current Outpatient Medications Medication Instructions Acetaminophen 650 mg, Oral, EVERY 4 HOURS PRN aspirin 81 mg, Oral, DAILY Biotin 10,000 mcg Oral Capsule 1 Capsule, DAILY carvediloL (COREG) 12.5 mg, Oral, 2 TIMES DAILY cholecalciferol, vitamin D3, 1,000 unit Oral Tablet 1 Tablet, DAILY CYANOCOBALAMIN, VITAMIN B-12, (VITAMIN B12 ORAL) 1 Tablet, DAILY lisinopriL (PRINIVIL;ZESTRIL) 10 mg, Oral, DAILY metFORMIN (GLUCOPHAGE) 1,000 mg Oral Tablet metFORMIN (GLUCOPHAGE) 1,000 mg, 2 TIMES DAILY [id number]-asb-C (PLENVU) 140-9-5.2 gram Oral Powder in Packet, Sequential 3 Packets,Oral, PREPROCEDURE, Take 1 kit per physician instructions spironolactone (ALDACTONE) 25 mg Oral Tablet TAKE 1/2 TABLET BY MOUTH DAILY torsemide (DEMADEX) 10 mg, Oral, DAILY PRN Anesthesia Assessment: Results for orders placed or performed during the hospital encounter of 12/05/24 POCT GLUCOSE Result Value Ref Range Glucose 143 60 - 200 MG/DL Lot Number [id number] Expiration Date 04/05/26 SeriAl # Meter 1 12/05/2024 7:26 AM AMB [facility] ANESTHESIA ASSESSMENT GEOGRAPHIC INFORMATION SYSTEMS ANALYST performed anesthesia assessment for patients receiving MAC anesthesia. Anesthesia plan explained to patient per GEOGRAPHIC INFORMATION SYSTEMS ANALYST. Consent for anesthesia obtained. Yes Neurological Assessment Awake, Alert and Oriented Cardiac Assessment RRR no M/R/G Pulmonary Assessment Lungs clear to auscultate bilaterally / respirations easy and even Airway Evaluation Mallampati Classification 2 Dentation Evaluation Good dentation ASA Class P2 - a patient with mild systemic disease Anesthesia supplies / equipment checked prior to procedure yes Procedure time out performed Yes Patient position for procedure Left lateral position and HOB elevated Monitors during procedure EKG;SaO2;EtCO2;NIBP Oxygen delivery Nasal Cannula Airway utilized for procedure Natural Post procedure report given to post procedure nurse Yes Procedure Documentation: Sedation Summary (12/05/2024 07:19:48 to 12/05/2024 07:41:25) 12/05/2024 Event Details User 07:19:31 Patient Out - Pre-Op Status: Patient in Pre-Op -- 07:19:32 Start Visit Sofia Frazier 07:19:32 Patient In - Proc. Room Status: Patient In Proc. Room -- 07:19:34 Endoscopy Documentation Start Sofia Frazier 07:19:43 Timeout: Initial in Room Verified by Sofia Frazier at 12/05/2024 0719 Sofia Frazier 07:19:48 Documentation Start Time Cassie Majano CRNA 07:19:53 Staff Arrived Cassie Majano CRNA [GEOGRAPHIC INFORMATION SYSTEMS ANALYST]; Mitchell Elmore MD [Performing P]; Sofia Frazier [Nurse] Cassie Majano CRNA 07:20:12 Anesthesia Start Time Cassie Majano CRNA 07:20:19 [facility] Vitals [facility] Cardiac Rhythm: SR Cassie Majano CRNA 07:21:24 [facility] Vitals [facility] SpO2: 96 % (Device Time: 24) Sofia Frazier 07:21:54 [facility] Vitals [facility] SpO2: 96 % (Device Time: ::) Pulse: 74 (Device Time: ::54) Sofia Frazier 07:22 [facility]als [facility] BP MAP (mmHg): 103 (Device Time: ::24) Resp: 14 (Device Time: ::54) Cassie Majano CRNA 07:22:24 [facility]als [facility] BP: 188/70 (Device Time: ::24) Sofia Frazier 07::54 [facility]als [facility] BP: 188/70 (Device Time: ::54) SpO2: 99 % (Device Time: ::54) Pulse: 86 (Device Time: ::54) Sofia Frazier 07:23 [facility]als [facility] BP MAP (mmHg): 103 (Device Time: ::54) Resp: 25 (Device Time: ::54) Cassie Majano CRNA 07:23:54 [facility] BP: 188/70 (Device Time: 07:23:54) SpO2: 96 % (Device Time: ) Pulse: 77 (Device Time: ) Sofia Frazier 07:24 [facility]als [facility] BP MAP (mmHg): 103 (Device Time: ) Resp: 13 (Device Time: ) Cassie Majano CRNA 07:24:23 Timeout: Final - Physician Led Verified by Sofia Frazier at 12/05/2024723 Sofia Frazier 07::35 Endoscopy Scope In Time Sofia Frazier [facility] BP: 188/70 (Device Time: ) SpO2: 92 % (Device Time: ) Pulse: 80 (Device Time: ) Sofia Frazier 07:25 [facility]als [facility] BP MAP (mmHg): 103 (Device Time: ) Resp: 18 (Device Time: ) ETCO2 (mmHg): 26 mmHg (Device Time: ) Cassie Majano CRNA 07:25:24 Medication Ordered and Given lidocaine 1% 10 mg/mL (1 %) injection - Dose: 5 mL ; Route: Intravenous ; Line: Peripheral IV 12/05/24 0643 Posterior;Right Hand Ordered by: Cassie Majano CRNA Estes, Jennifer, CRNA 07:25:24 [facility] Vitals [facility] BP: 188/70 (Device Time: ) Sofia Frazier 07:25:32 Medication Ordered and Given propofoL (DIPRIVAN) injection - Dose: 100 mg ; Route: Intravenous ; Line: Peripheral IV 12/05/24 0643 Posterior;Right Hand Ordered by: Cassie Majano CRNA Estes, Jennifer, CRNA 07:25:40 Medication Given propofoL (DIPRIVAN) injection - Dose: 50 mg ; Route: Intravenous ; Line: Peripheral IV 12/05/24 0643 Posterior;Right Hand Cassie Majano CRNA 07:25:54 [facility] Vitals [facility] SpO2: 92 % (Device Time: ) Pulse: 90 (Device Time: ) Schwaeble, Sofia 07:26 [facility]als [facility] BP MAP (mmHg): 103 (Device Time: ) Resp: 17 (Device Time: ) ETCO2 (mmHg): 33 mmHg (Device Time: ) Cassie Majano CRNA 07:26 Anesthesia Other flowsheet entries Airway utilized for procedure: Natural Cassie Majano CRNA : [facility]als [facility] SpO2: 97 % (Device Time: ) Pulse: 85 (Device Time: ) Schwaeble, Sofia 07:27 [facility]als [facility] ETCO2 (mmHg): 40 mmHg (Device Time: ) Cassie Majano CRNA 07:27: Endoscopy Cecum Reached Schwaeble, Sofia 07:27:13 Scope Withdraw Begin Schwaeble, Sofia ::54 [facility]als [facility] SpO2: 99 % (Device Time: ) Pulse: 83 (Device Time: ) Schwaeble, Sofia 07:28 Terminal Ileum Reached Schwaeble, Sofai 07:28 [facility]als [facility] ETCO2 (mmHg): 38 mmHg (Device Time: ) Cassie Majano CRNA : [facility]als [facility] SpO2: 100 % (Device Time: ) Pulse: 82 (Device Time: ) Schwaeble, Sofia 07:29 [facility] Vitals [facility] ETCO2 (mmHg): 40 mmHg (Device Time: ) Cassie Majano CRNA : [facility] Vitals [facility] SpO2: 100 % (Device Time: ) Pulse: 81 (Device Time: ) Schwaeble, Sofia 07:30 [facility]als [facility] ETCO2 (mmHg): 40 mmHg (Device Time: ) Cassie Majano CRNA : [facility] Vitals [facility] SpO2: 100 % (Device Time: ) Pulse: 78 (Device Time: ) Schwaeble Sofia 07:31 [facility] Vitals [facility] ETCO2 (mmHg): 40 mmHg (Device Time: ) Cassie Majano CRNA : [facility] Vitals [facility] SpO2: 100 % (Device Time: ) Pulse: 77 (Device Time: ) Schweder Sofia 07:32 [facility] Vitals [facility] ETCO2 (mmHg): 40 mmHg (Device Time: ) Cassie Majano CRNA :: [facility]als [facility] SpO2: 100 % (Device Time: ) Pulse: 76 (Device Time: ) Schweder Sofia 07:33 [facility]als [facility] ETCO2 (mmHg): 39 mmHg (Device Time: ) Cassie Majano CRNA :: [facility]als [facility] SpO2: 100 % (Device Time: ) Pulse: 80 (Device Time: ) Schwsharible Sofia 07:34 [facility] ETCO2 (mmHg): 41 mmHg (Device Time: ) Cassie Majano CRNA :: [facility] SpO2: 100 % (Device Time: ) Pulse: 79 (Device Time: ) Freddie Sofia 07:35 [facility] ETCO2 (mmHg): 40 mmHg (Device Time: ) Cassie Majano CRNA ::54 [facility]als [facility] SpO2: 100 % (Device Time: ) Pulse: 79 (Device Time: ) Schwaeble Sofia 07:36 [facility]als [facility] ETCO2 (mmHg): 40 mmHg (Device Time: ) Cassie Majano CRNA ::54 [facility] SpO2: 100 % (Device Time: ) Pulse: 78 (Device Time: ) Schwsharible Sofia 07:37 [facility]als [facility] ETCO2 (mmHg): 40 mmHg (Device Time: 54) Cassie Majano CRNA 07::54 [facility] SpO2: 100 % (Device Time: ) Pulse: 77 (Device Time: 54) SchwsharibleVidalsa 07:38 [facility] ETCO2 (mmHg): 39 mmHg (Device Time: ) Cassie Majano CRNA 07::54 [facility]als [facility] SpO2: 100 % (Device Time: ) Pulse: 76 (Device Time: :54) SchwSofia gaines 07:39 [facility]als [facility] ETCO2 (mmHg): 42 mmHg (Device Time: ) Cassie Majano CRNA 07:39:55 [facility]als [facility] SpO2: 100 % (Device Time: ) Pulse: 78 (Device Time: :55) Sofia Frazier 07:40 [facility] ETCO2 (mmHg): 41 mmHg (Device Time: ::55) Cassie Majano CRNA 07:40:55 [facility]als [facility] SpO2: 100 % (Device Time: ) Pulse: 82 (Device Time: :55) Schweder Sofia 07:41 [facility] ETCO2 (mmHg): 41 mmHg (Device Time: :55) Cassie Majano CRNA 07:41:03 Endoscopy Scope Out Time SchwSofia gaines 07:41:06 Endoscopy Documentation End Schweder Sofia 07:41:06 Staff Departed Cassie Majano CRNA [GEOGRAPHIC INFORMATION SYSTEMS ANALYST] (Automatically marked out by Endoscopy Documentation End event); Mitchell Elmore MD [Performing P] (Automatically marked out by Endoscopy Documentation End event); Sofia Frazier [Nurse] (Automatically marked out by Endoscopy Documentation End event) Sofia Frazier 07:41:09 Patient Out - Proc. Room Status: Patient In Proc. Room -- 07:41:17 Anesthesia End Cassie Majano CRNA 07:41:25 Documentation End Cassie Majano CRNA Performance Met for transition of care protocol The signature(s) below denote: Surgeon and CHACHA/GEOGRAPHIC INFORMATION SYSTEMS ANALYST collaboration for anesthesia necessity/delivery. Patient reassessed and meets all discharge criteria. No complications noted. Cassie Majano CRNA [1] Past Surgical History: Procedure Laterality Date BREAST BIOPSY 2008 left breast BREAST SURGERY 2009 segmentectomy and SLND CATHETER REMOVAL N/A 06/03/2017 Port a Cath Removal; Surgeon: Jagdeep Rodriguez MD; Location: [facility]; Service: General SECTION COLONOSCOPY LAPAROSCOPY LYMPH NODE BIOPSY 2007 sentinel lymph node LYMPH NODE DISSECTION Left 01/19/2010 axillary lumph node dissection LYMPH NODE DISSECTION 11/12/2010 supraclavicular lymph nodes removed NECK SURGERY Left 05/15/2011 left neck dissection TUNNELED VENOUS PORT PLACEMENT 2007 [2] Allergies Allergen Reactions Erythromycin Rash Penicillins Rash Keflex [Cephalexin] Rash And ears swelled up Sulfa (Sulfonamide Antibiotics) Other (See Comments) Joint pain Sulfur Dioxide Myalgia documented in this encounter Plan of Treatment Upcoming Encounters Date Type Department Care Team (Late st Contact Info) Description 04/27/2025 9:45 AM EDT Office Visit [facility] [address] [place] [address] Nora Long DO [address] [place] [address] documented as of this encounter Goals Goal Patient Goal Type Associated Problems Recent Progress Patient-Stated? Author Breast [facility] On track( 021 8:32 AM EDT) No Diane Bruce, SHLEBY Note: Patient will be compliant with monthly Self Breast Exams and is aware of to who to contact for any unusual or concerning findings. documented as of this encounter Procedures Procedure Name Priority Date/Time Associated Diagnosis Comments [facility] PATHOLOGY ORDER Routine 12/05/2024 7 :42 AM EDT Adenomatous polyp of ascending colon COLONOSCOPY Routine 12/05/2024 7:41 AM EDT Adenomatous polyp of ascending colon POCT GLUCOSE Routine 12/05/2024 6:43 AM EDT documented in this encounter Results * [facility] PATHOLOGY ORDER (12/05/2024 7:42 AM EDT) Tissue COLON STRUCTURE / Unknown 12/05/2024 7:42 AM EDT Impressions [facility] - 12/05/2024 7:00 PM EDT A. Colon, Select: Polyps TUBULAR ADENOMA(S)--2 FRAGMENTS HYPERPLASTIC POLYP(S)--3 FRAGMENTS Sections show two fragments of tubular adenoma(s) and three hyperplastic polyp(s). There is no evidence of high-grade dysplasia or malignancy. Narrative [facility] - 12/05/2024 7:00 PM EDT Pathologist: Liam Rutherford MD us Mitchell Elmore MD [employer] - ORDERABLES Rehana l Result [facility] [place] [address] * COLONOSCOPY (12/05/2024 7:41 AM EDT) Anatomical [...] 4 weeks, please call the office at [phone]. Office follow up as needed Pre-Procedure Diagnosis / Indication Adenomatous polyp of ascending colon Post-Procedure Diagnosis None Staff Staff Role Sofia Frazier Nurse Mitchell Elmore MD Performing Provider Cassie Majano CRNA GEOGRAPHIC INFORMATION SYSTEMS ANALYST Medications See Anesthesia Record. Preprocedure A history [...] MD ENDOSCOPY PROCEDURE ORDERAB LES Final Result * POCT GLUCOSE (12/05/2024 6:43 AM EDT) Glucose 143 60 - 200 MG/DL [facility] Lot Number [id number] [facility] Expiration Date 04/05/26 [facility] SeriAl # [facility] Meter 1 [facility] 12/05/2024 6:43 AM EDT Mitchell Elmore MD POINT OF CARE TEST ORDERABL ES Final Result [facility] [address] [address], [facility] [phone] documented in this encounter Visit Diagnoses Diagnosis Adenomatous polyp of ascending colon documented in this encounter Administered Medications Inactive Administered Medications - up to 1 most recent administrations Medication Order MAR Action Action Date Dose Rate Site lidocaine 1% 10 mg/mL (1 %) injection Intravenous, INTRAPROCEDURE, Starting on Wed12/05/24 at 0725, Until Wed12/05/24 at 0725 Given 12/05/2024 7:25 AM EDT 5 mL propofoL (DIPRIVAN) injection Intravenous, INTRAPROCEDURE, Starting on Wed12/05/24 at 0725, Until Wed12/05/24 at 07 Given 12/05/2024 7:25 AM EDT 50 mg documented in this encounter Historical Medications * This list may reflect changes made after this encounter. aspirin 81 mg Oral Tablet, Delayed Release (E.C.) Take 81 mg by mouth daily. added in this encounter Care Teams Wireless Consultant Relationship Specialty Start Date End Date Demetrius Carmona MD PCP - General 03/24/10 documented as of this encounter
[2024-12-21 15:08] LABS: Hematocrit 43.3 % (37.0-47.0); Hemoglobin 14.0 g/dL (12.2-16.2); Immature Granulocytes % 0.3 %; Mean Corpuscular HGB Conc 32.3 g/dL (31.8-35.4); Mean Corpuscular Hemoglobin 28.5 pg (27.0-31.2); Mean Corpuscular Volume 88.0 fl (81-99); Nucleated Red Blood Cells % 0 %; Platelet Count 215 K/mm3 (142-424); Red Blood Count 4.92 M/mm3 (4.20-5.40); Red Cell Distribution Width-SD 42.3 fL; White Blood Count 7.0 K/mm3 (4.8-10.8)
[2024-12-21 16:40] LABS: Albumin Level 5.0 g/dl (3.5-5.0); Chloride 106 mmol/L (98-107); Sodium 141 mmol/L (136-145)
[2024-12-21 16:41] LABS: Potassium 4.4 mmoL/L (3.5-5.1)
[2024-12-21 16:43] LABS: Alanine Aminotransferase 56 U/L (12-78); Albumin/Globulin Ratio 2.6 (1.1-1.8); Alkaline Phosphatase 64 U/L (38-126); Anion Gap 14.4 mEq/L (5-15); Aspartate Amino Transferase 34 U/L (14-36); Bilirubin,Total 1.2 mg/dl (0.2-1.3); Blood Urea Nitrogen 17 mg/dl (7-17); Carbon Dioxide 25 mmol/L (22.0-30.0); Cholesterol 150 mg/dl (140-200); Creatinine,Serum 0.80 mg/dl (0.52-1.04); Estimated Glomerular Filt Rate 72 ml/min (>60); GFR (African American) 87 ML/MIN (>60); Globulin 1.9 g/dL (1.3-3.2); Total Protein,Serum 6.9 g/dl (6.3-8.2); Triglycerides 95 mg/dl (30-150)
[2024-12-21 16:44] LABS: Calcium 9.4 mg/dl (8.4-10.2); Glucose 116 mg/dl (74-100); HDL Cholesterol 51 mg/dl (40-60)
--- OUTSIDE RECORDS SUMMARY | 2024-12-25 10:26 | XMS_ITS | Clinical Summary ---
Author Organization [facility] Address [address] [place] [address] Phone Care Team Providers Care Semiconductor Technician Name Role Phone Demetrius Carmona MD Primary Care Provider [phone] Allergies Active Allergy Reactions Criticality Noted Date Comments Erythromycin Rash Medium 01/21/2010 Cephalexin Rash Low 04/29/2010 And ears swelled up Penicillins Rash Medium 01/21/2010 Sulfa (Sulfonamide Antibiotics) Other (See Comments) Low 01/21/2010 Joint pain Sulfur Dioxide Myalgia Low 06/02/2023 Medications acetaminophen 650 mg Oral Tab Take 650 mg by mouth every 4 hours as needed. 3 Active CYANOCOBALAMIN, VITAMIN B-12, (VITAMIN B12 ORAL) Take 1 Tab by mouth daily. Active cholecalciferol , vitamin D3, 1,000 unit Oral Tablet Take 1 Tab by mouth daily. Active Biotin 10,000 mcg Oral Capsule Take 1 Cap by mouth daily. Active torsemide (DEMADEX) 10 mg Oral Tablet Take 1 Tab by mouth daily as needed (Edema). 30 Tab 5 8 Active metFORMIN (GLUCOPHAGE) 500 mg Oral Tablet Take 1,000 mg by mouth 2 times daily. 3 Active carvediloL (COREG) 12.5 mg Oral Tablet TAKE 1 TABLET BY MOUTH 2 TIMES A DAY 200 Tablet 2 5 Active spironolactone (ALDACTONE) 25 mg Oral Tablet TAKE 1/2 TABLET BY MOUTH DAILY 45 Tablet 3 5 Active lisinopriL (PRINIVIL;ZESTR IL) 10 mg Oral Tablet Take 1 Tablet by mouth daily. 90 Tablet 3 5 Active metFORMIN (GLUCOPHAGE) 1,000 mg Oral Tablet 5 Active [id number]-[id number]-as b-C (PLENVU) 140-9-5.2 gram Oral Powder in Packet, SequentialIndic ations:Adenomat ous polyp of ascending colon Take 3 Packets by mouth Preprocedure for up to 1 dose. Take 1 kit per physician instructions 3 Packet 5 Active Additional Information Patient not taking.Reason: Therapy Completed, Reported on 12/05/2024 aspirin 81 mg Oral Tablet, Delayed Release (E.C.) Take 81 mg by mouth daily. Active Active Problems Problem Noted Date Diagnosed Date Cellulitis of left arm 06/06/2022 Cellulitis of left upper extremity 06/24/2017 Lymphedema of left upper extremity 06/24/2017 Essential hypertension 06/24/2017 Nonischemic cardiomyopathy 06/24/2017 History of breast cancer 05/11/2017 Overview (05/11/2017): Added automatically from request for surgery [id number] Cellulitis of left upper extremity 03/07/2012 Personal history of breast cancer 09/16/2011 Atrial flutter 08/10/2011 Mitral valve prolapse 08/10/2011 Overview (08/10/2011): Mild(2004) Seroma Overview (06/04/2011): Left supraclavicular after LN dissection (05/15/11 [facility]) Resolved Problems Problem Noted Date Diagnosed Date Resolved Date Sepsis 06/24/2017 2018 Encounters Date Type Department Care Team Description 12/09/2024 Results Follow-Up [facility] [address] [facility] [place] [address] Mitchell Elmore MD [facility] ORDER 12/05/2024 6:20 AM EDT - 12/05/2024 11:59 PM EDT Hospital Encounter [facility] [address] [facility] [place] [address] Mitchell Elmore MD Adenomatous polyp of ascending colon Discharge Disposition: Home or Self Care 12/02/2024 Travel 12/01/2024 2:30 PM EDT Office Visit [facility] [address] [place] [id number] Mitchell Elmore MD Adenomatous polyp of ascending colon (Primary Dx) 11/26/2024 Travel 10/19/2024 Refill [facility] [address] [address] Nora Long, DO Medication Refill 10/16/2024 Refill [facility] [address] [address] Nora Long, DO Medication Refill 09/29/2024 Refill [facility] [address] [address] Nora Long, DO Medication Refill from Last 3 Months Surgical History Surgery Date Site/Laterality Comments SECTION LAPAROSCOPY BREAST SURGERY 02/16/2008 - 02/14/2009 segmentectomy and SLND TUNNELED VENOUS PORT PLACEMENT 02/15/2007 - 02/15/2008 BREAST BIOPSY 02/15/2007 - 02/15/2008 left breast LYMPH NODE BIOPSY 02/15/2007 - 02/15/2008 sentinel lymph node LYMPH NODE DISSECTION 01/19/2010 Left axillary lumph node dissection LYMPH NODE DISSECTION 11/12/2010 supraclavicular lymph nodes removed NECK SURGERY 05/15/2011 Left left neck dissection CATHETER REMOVAL 06/03/2017 N/A Port a Cath Removal; Surgeon: Jagdeep Rodriguez MD; Location: [facility]; Service: General COLONOSCOPY Medical History Medical History Date Comments Mitral valve prolapse Snores on occassion Hypertension lost weight and stopped med 03/2010 Postoperative nausea and vomiting Motion sickness Seroma 06/04/2011 Cardiomyopathy (HCC) Echo 2: per Dr. Long review: EF 40-45%, mild LV dil History of chemotherapy 01/2008; 09/2011 Dr. Cabrera campos ; taxotere,carbo, herceptin; then zeloda; then taxotere Radiation [address] Esparza Lymphedema of arm 02/2012 left arm, has also had cellulitis in the left arm in the past, NO IV STICKS, BP, OR BLOOD DRAWS IN LEFT ARM Breast cancer (HCC) 12/2007 Lt IDC; er/p r neg; her2 pos Breast cancer metastasized t o axillary lymph node (HCC) 12/2009 Lt Breast cancer metastasized t o axillary lymph node (HCC) 10/2010;04/2011 Left supraclavicular lymph n odes Tachycardia paroxsymal atria l flutter Colon polyp Diverticulosis Family History Medical History Relation Name Comments Hypertension Brother Diabetes Father Heart Disease Father Heart Surgery Father High Cholesterol Father Diabetes Maternal Grandmother Arrhythmia Mother Heart Disease Mother Cancer Paternal Grandmother Heart Disease Paternal Grandmother Anesth Problems Neg Hx Relation Name Status Comments Brother Alive Father Maternal Grandfather Maternal Grandmother Mother Alive Paternal Grandfather Paternal Grandmother Social History Tobacco Use Types Packs/Day Years [...] on file Sexual Orientation Not on file Obstetrics History Para Term AB IAB SAB Ectopic Multiple Livin g Live Births 3 Last Filed Vital Signs Vital Sign Reading [...] Mass Index 28.98 12/05/2024 6:28 AM EDT Plan of Treatment Upcoming Encounters Date Type Department Care Team (Late st Contact Info) Description 04/27/2025 9:45 AM EDT Office Visit [facility] [address] [place] [phone] Nora Long DO [address] [place] [address] Health Maintenance Due Date Last Done Comments Wellness Exam Medicare 1961 Lipids 1968 Diabetic Eye Exam 1976 Hepatitis C Screening 1976 Pneumococcal Vaccine 50+ (1 of 2 - PCV) 1977 Cologuard 05/25/2003 FIT 05/25/2003 Sigmoidoscopy 05/25/2003 Virtual Colonography 05/25/2003 RSV or 60+ (1 - Risk 50-74 years 1-dose series) 2008 Zoster (1 of 2) 2008 Hemoglobin A1c 12/06/2022 06/06/2022, 05/25/2018 Kidney Health: uACR 06/08/2023 06/07/2022 Kidney Health: eGFR 06/10/2023 06/09/2022, 06/08/2022, 06/07/2022, Additional history exists COVID-19 Vaccine ( - season) 2024 Influenza Vaccine (#1) 2024 , 11/17/2022, 12/15/2021, Additional history exists DTaP/TDaP/Td (2 - Td or Tdap) 08/14/2026 08/14/2016 Breast Cancer Screening 08/25/2026 08/26/19, 08/26/2023, 08/25/2022, Additional history exists Colon Cancer Screening 12/05/2027 Colonoscopy 12/05/2027 12/05/2024, 11/28/2019 Bone Density Screening Completed , 11/24/2022, 07/22/2012 Hepatitis B Vaccine Aged Out No longe r eligible based on patient's age to complete this topic Meningococcal B Vaccine Aged Out No l onger eligible based on patient's age to complete this topic Goals Goal Patient Goal Type Associated Problems Recent Progress Patient-Stated? Author Breast [employer] Breast Health On track( 021 8:32 AM EDT) No Diane Bruce, RN Note: Patient will be compliant with monthly Self Breast Exams and is aware of to who to contact for any unusual or concerning findings. Medical Devices Implanted Type Area Bingo Clerk Device Identifier Shelf Expiration Date Model / Serial / Lot Port A Cath Left Breast Marker Procedures Procedure Name Priority Date/Time Associated Diagnosis Comments [facility] PATHOLOGY ORDER Routine 12/05/2024 7 :42 AM EDT Adenomatous polyp of ascending colon COLONOSCOPY Routine 12/05/2024 7:41 AM EDT Adenomatous polyp of ascending colon POCT GLUCOSE Routine 12/05/2024 6:43 AM EDT MM MAMMO DIGITAL EMILIE SCREEN BILAT Routine 08/25/2024 8:14 AM EDT Screening mammogram, encounter for DX BONE DENSITY AXIAL SKELETON Routine 11/24/2022 10:48 AM EDT Encounter for screening for osteoporosis BASIC METABOLIC PANEL Early AM 06/09/2022 6:54 AM EDT ALBUMIN/CREATININE RATIO, RANDOM URINE Routine 06/07/2022 8:35 AM EDT HEMOGLOBIN A1C Add-On 06/06/2022 5:44 PM EDT from Last 3 Months or Most Recently Relevant to Health Maintenance Results * [facility] PATHOLOGY ORDER (12/05/2024 7:42 AM EDT) Tissue COLON STRUCTURE / Unknown 12/05/2024 7:42 AM EDT Impressions [facility] - 12/05/2024 7:00 PM EDT A. Colon, Select: Polyps TUBULAR ADENOMA(S)--2 FRAGMENTS HYPERPLASTIC POLYP(S)--3 FRAGMENTS Sections show two fragments of tubular adenoma(s) and three hyperplastic polyp(s). There is no evidence of high-grade dysplasia or malignancy. Narrative [facility] - 12/05/2024 7:00 PM EDT Pathologist: Liam Rutherford MD us Mitchell Elmore MD [employer] - ORDERABLES Rehana l Result Performing Organization Address City/State/[facility] Co de Phone Number [facility] [address] [place], [place] [id number] * COLONOSCOPY (12/05/2024 7:41 AM EDT) Anatomical [...] 4 weeks, please call the office at [phone]. Office follow up as needed Pre-Procedure Diagnosis / Indication Adenomatous polyp of ascending colon Post-Procedure Diagnosis None Staff Staff Role Sofia Frazier Nurse Mitchell Elmore MD Performing Provider Cassie Majano CRNA CRNA Medications See Anesthesia Record. Preprocedure A history [...] - 200 MG/DL [facility] Lot Number [id number] [facility] Expiration Date 04/05/26 [facility] SeriAl # [facility] Meter 1 [facility] 12/05/2024 6:43 AM EDT Mitchell Elmore MD POINT OF CARE TEST ORDERABL ES Final Result [facility] [address] [address], [facility] [phone] * MM MAMMO DIGITAL EMILIE SCREEN BILAT (08/25/2024 8:14 AM EDT) Anatomical Region Laterality Modality Breast Bilateral Mammography 08/25/2024 8:14 AM EDT Impressions 08/25/2024 10:05 AM EDT Negative ([id number]) RECOMMENDATION: Routine Screening Mammogram in 1 Year Bilateral . . COMMENTS: DISCLAIMER *The patient was notified by MyChart or mail of the results for this examination. *The patient's information was entered into a reminder system with a target due date for the next breast imaging, in accordance with the [employer] and the Society of Breast Imaging recommendations. *Breast Imaging has a false negative rate of 15%. *Any patient with a palpable abnormality, unexplained by breast imaging, should be managed on a clinical basis by the attending physician. Narrative 08/25/2024 10:05 AM EDT EXAM: MM MAMMO DIGITAL EMILIE SCREEN BILAT EXAM DATE: 08/25/2024 8:14 AM INDICATION: Z12.31-Encounter for screening mammogram for malignant neoplasm of [id number] COMPARISON STUDIES: Compared with prior studies the most recent being 08/26/2023 MM MAMMO DIGITAL EMILIE SCREEN BILAT at [facility] 08/25/2022 MM MAMMO DIGITAL EMILIE SCREEN BILAT at [facility] 03/25/2022 MM MAMMO DIGITAL EMILIE DIAGN LEFT at [facility] TISSUE DENSITY: There are scattered areas of fibroglandular density. FINDINGS: No mammographic evidence of malignancy. Procedure Note Criselda Sanchez MD - 08/25/2024 EXAM: MM MAMMO DIGITAL EMILIE SCREEN BILAT EXAM DATE: 08/25/2024 8:14 AM INDICATION: Z12.31-Encounter for screening mammogram for malignantneoplasm of [id number] COMPARISON STUDIES: Compared with prior studies the most recent being 08/26/2023 MM MAMMO DIGITAL EMILIE SCREEN BILAT at [facility] 08/25/2022 MM MAMMO DIGITAL EMILIE SCREEN BILAT at [facility] 03/25/2022 MM MAMMO DIGITAL EMILIE DIAGN LEFT at [facility] TISSUE DENSITY: There are scattered areas of fibroglandular density. FINDINGS: No mammographic evidence of malignancy. IMPRESSION: Negative ([id number]) RECOMMENDATION: Routine Screening Mammogram in 1 Year Bilateral . . COMMENTS: DISCLAIMER *The patient was notified by MyChart or mail of the results for this examination. *The patient's information was entered into a reminder system with atarget due date for the next breast imaging, in accordance with the [employer] and the Society of Breast Imaging recommendations. *Breast Imaging has a false negative rate of 15%. *Any patient with a palpable abnormality, unexplained by breast imaging,should be managed on a clinical basis by the attending physician. us Yue Puga NP [facility] MAMMOGRAPHY ORDERABLES Rehana melendez Result * DX BONE DENSITY AXIAL SKELETON (11/24/2022 10:48 AM EDT) Anatomical Region Laterality Modality Dexa Scan 11/24/2022 Impressions 11/24/2022 3:25 PM EDT Indication: The patient is a post-menopausal female under age 65 with clinical risk factors for an osteoporotic fracture that requires a bone density assessment. Study was performed on [employer] 5. Bone Density: Region BMD T-score Z-score AP Spine (L1-L4) 0.927 -1.1 0.6 Femoral Neck (Left) 0.748 -0.9 0.6 Total Hip (Left) 0.947 0.0 1.2 World Health Organization criteria for BMD interpretation classify patients as: Normal (T-score at or above -1.0), Low Bone Density (T-score between -1.0 and -2.5), or Osteoporotic (T-score at or below -2.5). T Scores are reported in Postmenopausal women and in men age 50 and older. Z-scores are reported in females prior to menopause and in males younger than age 50. 10-year Fracture Risk(1): Major Osteoporotic Fracture 7.5% Hip Fracture 0.5% Reported Risk Factors: [place] (), Neck BMD=0.748, BMI=29.4 (1) FRAX(R) Version 3.08. Fracture probability calculated for an untreated patient. Fracture probability may be lower if the patient has received treatment. Previous Exams: Region Date Age BMD T-score BMD Change AP Spine(L1-L4) 11/24/2022 62 0.927 -1.1 -0.6% 07/22/2012 52 0.933 -1.0 Total Hip(Left) 11/24/2022 62 0.947 0.0 0.1% 07/22/2012 52 0.946 0.0 -0.8% 01/22/2009 48 0.953 0.1 *Denotes significance at 95% confidence level, LSC for AP Spine = 0.032g/cm2, LSC for Total Hip = 0.024 g/cm2, LSC for Distal 1/3 Radius = 0.026 g/cm2, site specific LSC for AP Spine = 0.032 g/cm2, site specific LSC for Total Hip = 0.022 g/cm2 BMD is shown in g/cm2 and BMD Change indicates change vs previous BMD Clinical Information Provided by Patient: Has used or is currently using the following medications: Aromatase Inhibitors, Vitamin D, Chemotherapy drugs Has had or currently has the following medical conditions: Breast Cancer Patient maximum height was 68.0 Menopause Age: 43 Patient is Post menopausal woman Interpretation: Bone mineral density is in the low bone density range. The prior spine portion of the study has been reanalyzed for better comparison with today's exam. The spine bone mineral density is not significantly changed since the last exam. The left hip bone mineral density is not significantly changed since last exam. The National Osteoporosis Foundation recommends treatment consideration for patients with FRAX scores of greater than or equal to 20% for major osteoporotic fractures or greater than or equal to 3% for hip fracture. Patient's FRAX score does not meet the threshold for treatment consideration. FRAX score is included in the body this report. A minimum of two years may be required between bone density studies due to inherent testing precision limitations. Intervals between BMD testing should be determined according to each patient's clinical status: typically one year after initiation or change of therapy is appropriate, with longer intervals once therapeutic effect is established. Reported by: Dominique Hines PA-C, CCD on 11/24/2022 10:57:00 AM. Marion Singh MD IMG DEXA ORDERABLES Final Re sult * (ABNORMAL) BASIC METABOLIC PANEL (06/09/2022 6:54 AM EDT) Sodium 143 136 - 145 mmol/L 06/09/2022 8:10 AM EDT [facility] Potassium 4.7 3.5 - 5.0 mmol/L 06/09/2022 8:10 AM EDT [facility] Chloride 111(H) 98 - 107 mmol/L 06/09/2022 8:10 AM EDT [facility] Total CO2 20(L) 22 - 29 mmol/L 06/09/2022 8:10 AM EDT [facility] Anion Gap 12 7 - 16 mmol/L 06/09/2022 8:10 AM EDT [facility] Calcium 9.0 8.8 - 10.4 mg/dL 06/09/2022 8:10 AM EDT [facility] Glucose Lvl 150(H) 82 - 100 mg/dL 06/09/2022 8:10 AM EDT [facility] [employer], [facility] BUN 18 8 - 23 mg/dL 06/09/2022 8:10 AM EDT [facility] [employer], [facility] Creatinine 0.83 0.51 - 1.30 mg/dL 06/09/2022 8:10 AM EDT [facility] [employer], [facility] eGFR (CKD-EPIcr 2020) 78 >=60 mL/min/1.7 3 m2 06/09/2022 8:10 AM EDT [facility] Comment:Estimated GFR was ca lculated using the CKD-EPIcr (2020) equation refit without race. The equation is recommended by the National Kidney Foundation - [employer] [place] [employer] Nephrology Task Force. Blood VENOUS BLOOD / Unknown Venipuncture / Unknown 06/09/2022 6:54 AM EDT 06/09/2022 7:37 AM EDT us Cruz Cervantes MD CHEMISTRY ORDERABLES Final R esult [facility] [employer], [address], [place] [address] [facility] [address] [place] [address] * MICROALBUMIN/CREATININE RATIO URINE (06/07/2022 8:35 AM EDT) Urine Albumin <12.0 mg/L 06/07/2022 9:06 AM EDT [facility] [employer], [facility] Urine Creatinine 96.1 mg/dL 06/08/19 9:06 AM EDT [facility] [employer], [facility] Ur Albumin/Creat Ratio 06/07/2022 9:06 AM EDT [facility] [employer], [facility] Comment: Because the albumin level is below the level of detection in this urine specimen, the laboratory is unable to calculate a reliable albumin/creatinine ratio. Microalbuminuria is unlikely if the urine albumin concentration is less than 20- 30 mg/L in a random specimen. Urine URINE SPECIMEN COLLECTION / Unknown 06/07/2022 8:35 AM EDT 06/07/2022 8:36 AM EDT us Marj Velasquez MD URINE ORDERABLES Final Resul t Performing Organization Address [facility] Co de Phone Number [facility] [address] [place] [address] , [place] [address] * (ABNORMAL) HEMOGLOBIN A1C (06/06/2022 5:44 PM EDT) Hgb A1C 7.2(H) 4.2 - 5.6 % 06/06/2022 6:50 PM EDT [facility] Est. Avg Glucose 160 mg/dL 06/06/2022 6:50 PM EDT [facility] Blood VENOUS BLOOD / Unknown Venipuncture / Unknown 06/06/2022 5:44 PM EDT 06/06/2022 5:55 PM EDT Narrative [facility] - 06/06/2022 6:50 PM EDT REFERENCE RANGE: Normal: 4.0-5.6% Pre-diabetes: 5.7-6.4% Provisional diagnosis of diabetes: >6.4% Hgb F>10% and anything which shortens red cell survival, such as hemolytic anemia, or unstable hemoglobin variants such as HbSS, HbSC, or HbCC, will lower the HbA1c value associated with a given level of glycemic control. us Jack Stratton MD CHEMISTRY ORDERABLES Fi nal Result Performing Organization Address [facility] Co de Phone Number [facility] [address] [place] [address] , [place] [address] from Last 3 Months or Most Recently Relevant to Health Maintenance Insurance MEDICARE [place] PART A [place] B SUPPLE[place]AL MEDICARE [place] [address] A[employer] SUPPLEMENTAL Advance Directives For more information, please contact: [phone] * Full Code (Latest Code Status on File) Date Activated Date Inactivated Comments 06/07/2022 4:31 AM 06/10/2022 8:54 PM * Full Code Date Activated Date Inactivated Comments 02/23/2020 10:57 AM 02/27/2020 4:07 PM * Full Code Date Activated Date Inactivated Comments 09/27/2019 8:16 AM 09/28/2019 6:12 PM * Full Code Date Activated Date Inactivated Comments 05/25/2018 9:44 AM 05/27/2018 4:45 PM * Full Code Date Activated Date Inactivated Comments 06/25/2017 1:48 PM 07/01/2017 8:17 PM Care Teams Semiconductor Technician Relationship Specialty Start Date End Date Demetrius Carmona MD PCP - General 03/24/10
--- OUTSIDE RECORDS SUMMARY | 2024-12-25 10:26 | XMS_ITS | Encounter Summary ---
Author Organization [facility] [place] [address] Care Team Providers Care Refractory Tile Helper Name Role Phone Demetrius Carmona MD Primary Care Provider [phone] Encounter Details Date Type Department Care Team (Latest Contact Info) Description 12/02/2024 Travel Social History Tobacco Use Types Packs/Day Years Used Date Smoking Tobacco: Never Smokeless Tobacco: Never Alcohol Use Standard Drinks/Week Comments Yes 0 [...] on file documented as of this encounter Functional Status * Is the [...] Kristy Vazquez RN documented in this encounter Plan of Treatment Upcoming Encounters Date Type Department Care Team (Late st Contact Info) Description 04/27/2025 9:45 AM EDT Office Visit [facility] [address] [place] [address] Nora Long DO [address] [place] [address] documented as of this encounter Goals Goal Patient Goal Type Associated Problems Recent Progress Patient-Stated? Author Breast Health Breast Health On track( 021 8:32 AM EDT) Diane Ngo, RN Note: Patient will be compliant with monthly Self Breast Exams and is aware of to who to contact for any unusual or concerning findings. documented as of this encounter Visit Diagnoses Not on filedocumented in this encounter Care Teams Refractory Tile Helper Relationship Specialty Start Date End Date Demetrius Carmona MD PCP - General 03/24/10 documented as of this encounter
--- OUTSIDE RECORDS SUMMARY | 2024-12-25 10:26 | XMS_ITS | Encounter Summary ---
Author Organization [facility] Address [address] [place] [address] Care Team Providers Care Pug Mill Operator Name Role Phone Demetrius Carmona MD Primary Care Provider [phone] Encounter Details Date Type Department Care Team (Late st Contact Info) Description 12/09/2024 Results Follow-Up [facility] [address] [place] [address] Mitchell Elmore MD [address] [place] [address] [facility] PATHOLOGY ORDER Social History Tobacco Use Types Packs/Day Years Used Date Smoking Tobacco: Never Smokeless Tobacco: Never Alcohol Use Standard Drinks/Week Comments Yes 1 [...] EDT Office Visit [facility] [address] [place] [address] Ethan, Kami, [address] [place] [address] documented as of this encounter [...] on filedocumented in this encounter Care Teams Pug Mill Operator Relationship Specialty Start Date End Date Demetrius Carmona MD PCP - General 03/24/10 documented as of this encounter
--- OUTSIDE RECORDS SUMMARY | 2024-12-25 10:26 | XMS_ITS | Clinical Summary ---
Author Organization [facility] Address [address] [place] [id number] Care Team Providers Care Stitch Bonding Machine Drawer In Name Role Phone Demetrius Carmona MD Primary Care Provider [phone] Nam Choudhary MD Unavailable [phone] Allergies Active Allergy Reactions Criticality Noted Date Comments Erythromycin Rash Medium 01/24/2008 Penicillins 11/24/2022 Sulfa (Sulfonamide Antibiotics) 11/15 Medications metFORMIN (GLUCOPHAGE) 500 mg tablet Take 500 mg by mouth every 24 hours. 06/23/2022 Active carvediloL (COREG) 12.5 mg Tablet Take 1 Tablet by mouth in the morning and 1 Tablet before bedtime. 06/18/2022 Active spironolactone (ALDACTONE) 25 mg tablet 08/12/2022 Active Cholecalciferol , Vitamin D3, 25 mcg (1,000 unit) Capsule Active Biotin 10,000 mcg Capsule Active lisinopriL (ZESTRIL) 10 mg tablet Take 1 Tablet by mouth in the morning. 06/18/2022 Active metFORMIN (GLUCOPHAGE) 1,000 mg tablet Take 1,000 mg by mouth in the morning and 1,000 mg before bedtime. Active aspirin 81 mg tablet Take 81 mg by mouth in the morning. 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, estrogen receptor negative 01/09/2008 Cancer Staging:Clinical stage from 01/09/2008:Stage IIB(cT2, cN1(sn), cM0, G3, ER-, OK-, HER2+) - Signed by Nam Choudhary MD on 11/18/2021 Encounters Date Type Department Care Team Description 11/21/2024 1:00 PM EDT Office Visit [facility] [address] [place] [address] [place] [address] Nam Choudhary MD Malignant neoplasm of central 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, estrogen receptor negative (CMS/HCC) (Primary Dx) from Last 3 Months Social History Tobacco Use Types Packs/Day Years Used Date Smoking Tobacco: Never Smokeless Tobacco: Never Tobacco Cessation:Counseling Given: Not Answered Comments Unknown Sex and Gender Information Value Date Recorded Sex Assigned at Not on file Legal Sex Female 2:04 PM EDT Gender Identity Not on file Sexual Orientation Not on file Last Filed Vital Signs Vital Sign Reading [...] Mass Index 29.45 11/21/2024 1:02 PM EDT Plan of Treatment Upcoming Encounters Date Type Department Care Team (Late st Contact Info) Description 11/21/2025 11:40 AM EDT Appointment [facility] Physicians - Hematology & Oncology, [place] [address] [facility] [place] [phone] Nam Choudhary MD [address] [facility] [place] [id number] Health Maintenance Due Date Last Done Comments Cologuard 1958 Colonoscopy 1958 Colorectal Cancer Screening 1958 FIT 1958 Lipid Screening 1976 Hepatitis C Virus (HCV) Screening 05/25/1979 Pneumococcal Vaccine: 50+ Ye ars (1 of 1 - PCV) 2008 Zoster-RZV(Shingrix) (1 of 2) 2008 Fall Risk Assessment 05/25/2023 Advance Care Planning 02/16/2024 BMI Counseling 02/16/2024 Depression Screening 02/16/2024 COVID-19 Vaccine (2 - 2024-2 6 season) 2024 05/21/2020 Influenza Vaccination (#1) 2024 11/17/2022, Tetanus Vaccination (Every 1 0 Years) 08/14/2026 08/14/2016 Breast Cancer Screening 08/25/2026 08/26/19 25, 08/25/2024, 08/26/2023, Additional history exists Osteoporosis Screening 11/25/2027 3, 11/24/2022, 07/22/2012 RSV Vaccines (1 - 1-dose 75+ series) 2033 Cervical Cancer Screening Discontinued 06/28/2012 Influenza Vaccination (Yearly) Discontinued 11/17/2022 , 12/15/2021 Procedures Procedure Name Priority Date/Time Associated Diagnosis Comments PATHOLOGY - OUTSIDE DEALER SALES REPRESENTATIVE CYTOLOGY 06/28/2012 12:00 AM EDT from Last 3 Months or Most Recently Relevant to Health Maintenance Results * PATHOLOGY - OUTSIDE DEALER SALES REPRESENTATIVE CYTOLOGY (06/28/2012 12:00 AM EDT) 06/28/2012 06/29/2012 Narrative [facility] - 07/01/2012 2:29 PM EDT CASE: [id number] PATIENT: GINNY CARVER Cytologic Diagnosis: SPECIMEN ADEQUACY: Satisfactory for evaluation. No endocervical/transformation zone component identified, consistent with history (hysterectomy, postmenopausal, or ). INTERPRETATION: NEGATIVE FOR INTRAEPITHELIAL LESION OR MALIGNANCY CELLULAR CHANGES ASSOCIATED WITH ATROPHIC VAGINITIS. THIS SPECIMEN WAS RESCREENED PART OF OUR ASSISTANT SUPERINTENDENT FOR CURRICULUM PROGRAM. COMMENTS: This liquid based ThinPrep(R) pap test was screened with the use of an image guided system. The HPV DNA reflex criteria were not met with this specimen result therefore, no HPV testing was performed. Performing Location: [address] [place] [address] Dir: Lawrence Elizabeth MD For inquiries, the physician may contact Branch: [phone] Lab: [phone] PRIOR PAP SMEAR DIAGNOSES: No cases found ROSELYN WELSH Environmental Systems Coordinator SUZY COTO Environmental Systems Coordinator, (ASCP) Electronically signed 07/01/2012 May Tima Singh MD PATHOLOGY/CYTOLOGY ORDERABLE S Final Result [facility] [address] [place] [address], [facility] from Last 3 Months or Most Recently Relevant to Health Maintenance Insurance MEDICARE Member Subscriber Plan / Payer (Ef fective 2023-Present) Name:Ginny Carver Member ID:[id number] Relation to Subscriber:Self Name:Ginny Carver Subscriber ID:[id number] Payer ID:[id number] Group ID:Not on file Type:Medicare Address: [address] [facility] [address] [place] [id number] [facility] Care Teams Stitch Bonding Machine Drawer In Relationship Specialty Start Date End Date Demetrius Carmona MD PCP - General Family Medicine 07/30/15 Nam Choudhary MD [address] [place] [id number] Covering Provider Hematology and Oncology 11/18/21
--- OUTSIDE RECORDS SUMMARY | 2024-12-25 10:26 | XMS_ITS | Encounter Summary ---
Author Organization [facility] [place] [address] Care Team Providers Care Aoc Director Combat Plans Officer Name Role Phone Demetrius Carmona MD Primary Care Provider [phone] Encounter Details Date Type Department Care Team (Latest Contact Info) Description 11/26/2024 Travel Social History Tobacco Use Types Packs/Day [...] EDT Office Visit [facility] [address] [place] [address] Nora Long DO [address] [place] [address] documented as of this encounter [...] on filedocumented in this encounter Care Teams Aoc Director Combat Plans Officer Relationship Specialty Start Date End Date Demetrius Carmona MD PCP - General 03/24/10 documented as of this encounter
--- OUTSIDE RECORDS SUMMARY | 2024-12-25 10:27 | XMS_ITS | Data Portability ---
Author Organization [facility] Address [address] [place] [address] Assessment Encounter Date Assessment Date Assessment LastModified by Organization Details LastModified Time 08/14/2016 08/14/2016 The patient was advised to continue a healthy diet and exercise regularly. She also was advised to: followup with a post hole digger for a colonoscopy . Labs will be sent to evaluate blood count, renal function lipids and vitamin D. Reviewed CT chest,neck and abdomen Tdap administered today.Mammogram order given.Referral for colonoscopy. Colonoscopy referral.Mammogram yearly history of breast cancer. [email or web address] Not available 08/14/2016 13:45:33 07/06/2017 07/06/2017 pt has 2 days le ft on levaquin. overall symptoms improved. all labs and discharge info reviewed with pt. she is to f/u in august for annual wellness exam Not available 07/06/2017 12:18:24 Plan of Treatment Reminders Order Date Submit Date Provider Last Modified By Organization Details Last Modified Time Details Appointments None record ed. Lab glucos e, finger stick, blood 2020 021 [email or web address] [facility], [address] [place], [address], 1 13:44:12 lipid panel, serum 2019 020 GUY [facility], [address], [place], [address], 0 04:35:57 HbA1c (hemog lobin A1c), blood 2019 020 GUY [facility], [address], [place], [address], 0 04:35:57 CMP, serum or plasma 2019 020 GUY [facility], [address] [place], [place], [address], 0 04:35:56 CBC w/ auto diff 2019 020 GUY [facility], [address], [place], [address], 0 04:35:55 TSH, ultra- sensit yamilet, serum 2019 020 GUY [facility], [address] [place] [address], [place], [address], 0 04:35:58 hepati tis C Ab, signal -to-cu toff, serum or plasma 2016 017 GUY [facility], [address] [place] [address], [place], [address], 7 08:37:18 lipid panel, serum 2016 017 GUY [facility], [address], [place], [address], 7 08:37:17 CMP, serum or plasma 2016 017 GUY [facility], [address] [place] [address], [place], [address], 7 08:37:16 vitami n D, 25-hyd gabriel, total, serum 2016 017 GUY [facility], [address] [place], [place], [address], 7 08:37:17 CBC w/ auto diff 2016 017 GUY [facility], [address], [place], [address], 7 08:37:16 Referral gastro entero logist referr al 2016 017 GUY [facility], [address], [place], [address], 7 15:45:41 Procedures colono scopy proced ure (PROC) 2016 017 [email or web address] [facility], [address], [place], [address], 7 12:19:00 Surgeries None record ed. Imaging MAMMO, screen ing, bilate ral 2016 017 [email or web address] 1 [facility], [address] [place], [address], 7 09:56:24 Medication Orders mupiro hanna 2 % topica l ointme nt 2019 020 INTERFACE [facility], [address] [place], [address], 0 14:55:56 Hibicl ens 4 % topica l liquid 2019 020 INTERFACE [facility], [address] [place], [address], 0 14:56:00 lisino pril 10 mg tablet [facility] [address] [place], [address], 7 10:13:53 Patient TargetsNo targets recorded. Patient Instructions Encounter Date Encounter Id Patient Instructions Last Modified By Organization Details Last Modified Time 08/14/2016 [id number] tetanus and diphtheria booster: care instructions [email or web address] Not available 08/14/2016 18:03:27 A healthy lifestyle: care instructions [email or web address] Not available 08/14/2016 18:03:28 high blood pressure: care instructions [email or web address] Not available 08/14/2016 18:03:27 learning about high blood pressure [email or web address] Not available 08/14/2016 18:03:27 07/06/2017 [id number] high blood pressure: care instructions Not available 07/06/2017 08:43:38 learning about high blood pressure [email or web address] Not available 07/06/2017 08:43:38 10/10/2019 [id number] high blood pressure: care instructions Not available 10/10/2019 14:55:48 learning about high blood pressure Not available 10/10/2019 14:55:48 learning about healthy weight [email or web address] Not available 10/10/2019 14:55:48 Discussed low sodium diet Exercise 30 minutes 5 days per week Maintain healthy body weight Avoid tobacco products Get yearly check ups FU 3 month Medications: Continue same 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 [email or web address] Not available 10/10/2019 14:59:22 01/16/2020 [id number] learning about healthy weight [email or web address] Not available 01/16/2020 10:11:59 Discussed low sodium diet Exercise 30 minutes 5 days per week Maintain healthy body weight Avoid tobacco products Get yearly check ups FU 12 month AWE Medications: Continue same [email or web address] Not available 01/16/2020 10:20:57 02/20/2020 [id number] learning about high blood sugar [email or web address] Not available 02/20/2020 13:14:20 1. Discussed starting medication such a Metformin. She would rather watch her sugar at home to see if it will return to normal on its own. 2. She currently walks 2 miles/day. Recommend she take it up to 3 and lift weights twice a week. [email or web address] Not available 02/20/2020 13:18:31 Reason for Referral Referring Physician: Demetrius Carmona, Family Medicine, Encounter Date: 08/14/2016 Results Created Date Observation Date Name Description Value Unit Range Abnormal Flag Note LastModifiedBy Organization Detail LastModifiedTime 08/15/19 17 08/15/2016 CBC w/ auto diff WBC 5.3 x10e3 /uL 3.4-10 .8 Not Available [facility] ([facility]) [address] [facility] [place], [address], 08/15/2016 08:37:16 08/15/19 17 08/15/2016 CBC w/ auto diff RBC 4.63 x10e6 /uL 3.77-5 .28 Not Available [facility] ([facility]) [address] [facility], [place], [address], 08/15/2016 08:37:16 08/15/19 17 08/15/2016 CBC w/ auto diff hemoglobin 13.3 g/dL 11.1-1 5.9 Not Available [facility] ([facility]) [address] [facility], [place], [address], 08/15/2016 08:37:16 08/15/19 17 08/15/2016 CBC w/ auto diff hematocrit 40.3 % 34.0-4 6.6 Not Available [facility] ([facility]) [address] [facility], [place], [address], 08/15/2016 08:37:16 08/15/19 17 08/15/2016 CBC w/ auto diff MCV 87 fL 79-97 Not Available [facility] ([facility]) [address] [facility], [place], [address], 08/15/2016 08:37:16 08/15/19 17 08/15/2016 CBC w/ auto diff MCH 28.7 pg 26.6-3 3.0 Not Available [facility] ([facility]) [address] [facility], [place], [address], 08/15/2016 08:37:16 08/15/1908/15/2016 CBC w/ auto diff MCHC 33.0 g/dL 31.5-3 5.7 Not Available [facility] ([facility]) [address] [place], [address], 08/15/2016 08:37:16 08/15/19 17 08/15/2016 CBC w/ auto diff RDW 13.4 % 12.3-1 5.4 Not Available [facility] ([facility]) [address] [place], [address], 08/15/2016 08:37:16 08/15/19 17 08/15/2016 CBC w/ auto diff platelets 182 x10e3 /uL 150-37 9 Not Available [facility] ([facility]) [address] [facility], [place], [address], 08/15/2016 08:37:16 08/15/19 17 08/15/2016 CBC w/ auto diff neutrophils 57 % Not Available [facility] ([facility]) [address] [place] [address], [address], 08/15/2016 08:37:16 08/15/19 17 08/15/2016 CBC w/ auto diff lymphs 33 % Not Available [facility] ([facility]) [address] [place], [address], 08/15/2016 08:37:16 08/15/19 17 08/15/2016 CBC w/ auto diff monocytes 9 % Not Available [facility] ([facility]) [facility] [place], [address], 08/15/2016 08:37:16 08/15/19 17 08/15/2016 CBC w/ auto diff eos 1 % Not Available [facility] ([facility]) [address] [place], [address], 08/15/2016 08:37:16 08/15/19 17 08/15/2016 CBC w/ auto diff basos 0 % Not Available [facility] ([facility]) [address] [place] [address], [address], 08/15/2016 08:37:16 08/15/19 17 08/15/2016 CBC w/ auto diff immature cells WALLPAPER PRINTER Not Available [facility] ([facility]) [address] [facility], [place], [address], 08/15/2016 08:37:16 08/15/19 17 08/15/2016 CBC w/ auto diff neutrophils (absolute) 3.0 x10e3 /uL 1.4-7. 0 Not Available [facility] ([facility]) [address] [facility], [place], [address], 08/15/2016 08:37:16 08/15/1908/15/2016 CBC w/ auto diff lymphs (absolute) 1.8 x10e3 /uL 0.7-3. 1 Not Available [facility] ([facility]) [address] [facility], [place], [address], 08/15/2016 08:37:16 08/15/19 17 08/15/2016 CBC w/ auto diff monocytes(ab solute) 0.5 x10e3 /uL 0.1-0. 9 Not Available [facility] ([facility]) [address] [facility], [place], [address], 08/15/2016 08:37:16 08/15/1908/15/2016 CBC w/ auto diff eos (absolute) 0.1 x10e3 /uL 0.0-0. 4 Not Available [facility] ([facility]) [address] [facility], [place], [address], 08/15/2016 08:37:16 08/15/1908/15/2016 CBC w/ auto diff baso (absolute) 0.0 x10e3 /uL 0.0-0. 2 Not Available [facility] ([facility]) [address] [facility], [place], [address], 08/15/2016 08:37:16 08/15/1908/15/2016 CBC w/ auto diff immature granulocytes 0 % Not Available [facility] ([facility]) [address] [facility], [place], [address], 08/15/2016 08:37:16 08/15/19 17 08/15/2016 CBC w/ auto diff immature grans (abs) 0.0 x10e3 /uL 0.0-0. 1 Not Available [facility] ([facility]) [address] [facility], [address], 08/15/2016 08:37:16 08/15/19 17 08/15/2016 CBC w/ auto diff NRBC WALLP[employer]ER PRINTER Not Available [facility] ([facility]) [address] [facility], [address], 08/15/2016 08:37:16 08/15/19 17 08/15/2016 CBC w/ auto diff hematology comments: WALLPAPER PRINTER Not Available [facility] ([facility]) [address] [facility], [address], 08/15/2016 08:37:16 08/15/1908/15/2016 CMP, serum or plasm a glucose, serum 120 mg/dL 65-99 above high normal Not Available [facility] ([facility]) [address] [facility] [place], [address], 08/15/2016 08:37:16 08/15/1908/15/2016 CMP, serum or plasm a BUN 23 mg/dL 6-24 Not Available [facility] ([facility]) [address] [facility], [address], 08/15/2016 08:37:16 08/15/1908/15/2016 CMP, serum or plasm a creatinine, serum 0.99 mg/dL 0.57-1 .00 Not Available [facility] ([facility]) [address] [facility] [place], [address], 08/15/2016 08:37:16 08/15/1908/15/2016 CMP, serum or plasm a eGFR if nonafricn AM 63 mL/mi n/1.7 3 >59 Not Available [facility] ([facility]) [address] [facility], [address], 08/15/2016 08:37:16 08/15/19 17 08/15/2016 CMP, serum or plasm a eGFR if africn AM 73 mL/mi n/1.7 3 >59 Not Available [facility] ([facility]) [address] [facility], [address], 08/15/2016 08:37:16 08/15/19 17 08/15/2016 CMP, serum or plasm a BUN/creatini ne ratio 23 9-23 Not Available [facility] ([facility]) [address] [facility], [address], 08/15/2016 08:37:16 08/15/19 17 08/15/2016 CMP, serum or plasm a sodium, serum 141 mmol/ L 134-14 4 Not Available [facility] ([facility]) [address] [place], [address], 08/15/2016 08:37:16 08/15/1908/15/2016 CMP, serum or plasm a potassium, serum 4.7 mmol/ L 3.5-5. 2 Not Available [facility] ([facility]) [address] [place], [address], 08/15/2016 08:37:16 08/15/19 17 08/15/2016 CMP, serum or plasm a chloride, serum 100 mmol/ L 96-106 Not Available [facility] ([facility]) [address] [place], [address], 08/15/2016 08:37:16 08/15/19 17 08/15/2016 CMP, serum or plasm a carbon dioxide, total 24 mmol/ L 18-29 Not Available [facility] ([facility]) [address] [place], [address], 08/15/2016 08:37:16 08/15/19 17 08/15/2016 CMP, serum or plasm a calcium, serum 9.8 mg/dL 8.7-10 .2 Not Available [facility] ([facility]) [address], [place], [address], 08/15/2016 08:37:16 08/15/1908/15/2016 CMP, serum or plasm a protein, total, serum 6.8 g/dL 6.0-8. 5 Not Available [facility] ([facility]) [address] [place], [address], 08/15/2016 08:37:16 08/15/1908/15/2016 CMP, serum or plasm a albumin, serum 4.6 g/dL 3.5-5. 5 Not Available [facility] ([facility]) [address] [place], [address], 08/15/2016 08:37:16 08/15/1908/15/2016 CMP, serum or plasm a globulin, total 2.2 g/dL 1.5-4. 5 Not Available [facility] ([facility]) [address] [facility], [place], [address], 08/15/2016 08:37:16 08/15/1908/15/2016 CMP, serum or plasm a A/G ratio 2.1 1.2-2. 2 Not Available [facility] ([facility]) [address] [place], [address], 08/15/2016 08:37:16 08/15/1908/15/2016 CMP, serum or plasm a bilirubin, total 0.6 mg/dL 0.0-1. 2 Not Available [facility] ([facility]) [address] [place], [address], 08/15/2016 08:37:16 08/15/1908/15/2016 CMP, serum or plasm a alkaline phosphatase, S 64 IU/L 39-117 Not Available [facility] ([facility]) [address] [facility] [place], [address], 08/15/2016 08:37:16 08/15/1908/15/2016 CMP, serum or plasm a AST (SGOT) 19 IU/L 0-40 Not Available [facility] ([facility]) [address] [facility] [place], [address], 08/15/2016 08:37:16 08/15/19 17 08/15/2016 CMP, serum or plasm a ALT (SGPT) 24 IU/L 0-32 Not Available [facility] ([facility]) [address] [facility], [place], [address], 08/15/2016 08:37:16 08/15/1908/15/2016 lipid panel , serum cholesterol, total 160 mg/dL 100-19 9 Not Available [facility] ([facility]) [address] [facility] [place], [address], 08/15/2016 08:37:17 08/15/1908/15/2016 lipid panel , serum triglyceride s 112 mg/dL 0-149 Not Available [facility] ([facility]) [address] [facility] [place], [address], 08/15/2016 08:37:17 08/15/1908/15/2016 lipid panel , serum HDL cholesterol 50 mg/dL >39 Not Available [facility] ([facility]) [address] [facility] [place], [address], 08/15/2016 08:37:17 08/15/1908/15/2016 lipid panel , serum VLDL cholesterol lisseth 22 mg/dL 5-40 Not Available [facility] ([facility]) [address] [facility] [place], [address], 08/15/2016 08:37:17 08/15/1908/15/2016 lipid panel , serum LDL cholesterol calc 88 mg/dL 0-99 Not Available [facility] ([facility]) [address] [facility] [place], [address], 08/15/2016 08:37:17 08/15/19 17 08/15/2016 lipid panel , serum comment: WALLPAPER PRINTER Not Available [facility] ([facility]) [address] [facility], [place], [address], 08/15/2016 08:37:17 08/15/19 17 08/15/2016 vitam in D, 25-hy droxy , total , serum vitamin D, 25-hydroxy 30.2 NG/mL 30.0-1 00.0 VITAM IN D DEFIC IENCY HAS BEEN DEFIN ED BY THE INSTI TUTE OF MEDIC INE AND AN ENDOC RINE SOCIE TY PRACT ICE GUIDE LINE A LEVEL OF SERUM 25-OH VITAM IN D LESS THAN 20 NG/ML (1,2) . THE ENDOC RINE SOCIE TY WENT ON TO FURTH ER DEFIN E VITAM IN D INSUF FICIE NCY A LEVEL BETWE EN 21 AND 29 NG/ML (2). 1. IOM (INST ITUTE OF MEDIC INE). 2009. SHAYLA RY REFER ENCE INTAK ES FOR CALCI UM AND D. MARTHA SUMMERS DC: THE NATIO NAL ACADE [facility] PRESS . 2. WISAM Joseph MF, KOKO THOMAS NC, BRITTANY OFF-F ERRAR I HURST, ET AL. EVALU ATION , TREAT MENT, AND PREVE NTION OF VITAM IN D DEFIC IENCY : AN ENDOC RINE SOCIE TY CLINI LISSETH PRACT ICE GUIDE LINE. JCEM. 2010; 96(7) :1911 -30. Not Available [facility] ([facility]) [address] [facility], [place], [address], 08/15/2016 08:37:17 08/15/19 17 08/15/2016 hepat itis C Ab, signa l-to- cutof f, serum or plasm a hep C virus Ab <0.1 S/co_ ratio 0.0-0. 9 NEGAT YAMILET: < 0.8 INDET ERMIN ATE: 0.8 - 0.9 POSIT YAMILET: > 0.9 THE CDC RECOM MENDS THAT A POSIT YAMILET HCV ANTIB JAYY RESUL T BE FOLLO WED UP WITH A HCV NUCLE IC ACID AMPLI FICAT ION TEST (6686 [id number]). Not Available [facility] ([facility]) [address] [facility], [place], [address], 08/15/2016 08:37:18 01/16/20 20 01/17/2020 CBC w/ auto diff WBC 5.8 x10e3 /uL 3.4-10 .8 Not Available [facility] ([facility]) [address] [facility], [place], [address], 01/17/2020 04:35:55 01/16/2001/17/2020 CBC w/ auto diff RBC 4.73 x10e6 /uL 3.77-5 .28 Not Available [facility] ([facility]) [address] [facility], [place], [address], 01/17/2020 04:35:55 01/16/2001/17/2020 CBC w/ auto diff hemoglobin 13.8 g/dL 11.1-1 5.9 Not Available [facility] ([facility]) [address] [place], [address], 01/17/2020 04:35:55 01/16/2001/17/2020 CBC w/ auto diff hematocrit 42.9 % 34.0-4 6.6 Not Available [facility] ([facility]) [address] [facility], [place], [address], 01/17/2020 04:35:55 01/16/2001/17/2020 CBC w/ auto diff MCV 91 fL 79-97 Not Available [facility] ([facility]) [address] [facility], [place], [address], 01/17/2020 04:35:55 01/16/2001/17/2020 CBC w/ auto diff MCH 29.2 pg 26.6-3 3.0 Not Available [facility] ([facility]) [address] [place], [address], 01/17/2020 04:35:55 01/16/2003 0201/17/2020 CBC w/ auto diff MCHC 32.2 g/dL 31.5-3 5.7 Not Available [facility] ([facility]) [address] [facility], [place], [address], 01/17/2020 04:35:55 01/16/20 20 01/17/2020 CBC w/ auto diff RDW 13.2 % 11.7-1 5.4 Not Available [facility] ([facility]) [address] [facility], [place], [address], 01/17/2020 04:35:55 01/16/20 20 01/17/2020 CBC w/ auto diff platelets 207 x10e3 /uL 150-45 0 Not Available [facility] ([facility]) [address] [facility], [place], [address], 01/17/2020 04:35:55 01/16/20 20 01/17/2020 CBC w/ auto diff neutrophils 59 % not estab. Not Available [facility] ([facility]) [address] [facility], [place], [address], 01/17/2020 04:35:55 01/16/20 20 01/17/2020 CBC w/ auto diff lymphs 30 % not estab. Not Available [facility] ([facility]) [address] [facility], [place], [address], 01/17/2020 04:35:55 01/16/20 20 01/17/2020 CBC w/ auto diff monocytes 9 % not estab. Not Available [facility] ([facility]) [address] [facility], [place], [address], 01/17/2020 04:35:55 01/16/20 20 01/17/2020 CBC w/ auto diff eos 1 % not estab. Not Available [facility] ([facility]) [address] [facility], [place], [address], 01/17/2020 04:35:55 12/01/01/17/2020 CBC w/ auto diff basos 1 % not estab. Not Available [facility] ([facility]) [address] [place], [address], 01/17/2020 04:35:55 01/16/20 20 01/17/2020 CBC w/ auto diff immature cells WALLPAPER PRINTER Not Available [facility] ([facility]) [address] [place], [address], 01/17/2020 04:35:55 01/16/2001/17/2020 CBC w/ auto diff neutrophils (absolute) 3.4 x10e3 /uL 1.4-7. 0 Not Available [facility] ([facility]) [address] [place], [address], 01/17/2020 04:35:55 01/16/20 20 01/17/2020 CBC w/ auto diff lymphs (absolute) 1.7 x10e3 /uL 0.7-3. 1 Not Available [facility] ([facility]) [address] [place], [address], 01/17/2020 04:35:55 01/16/20 20 01/17/2020 CBC w/ auto diff monocytes(ab solute) 0.5 x10e3 /uL 0.1-0. 9 Not Available [facility] ([facility]) [address] [place], [address], 01/17/2020 04:35:55 01/16/20 20 01/17/2020 CBC w/ auto diff eos (absolute) 0.1 x10e3 /uL 0.0-0. 4 Not Available [facility] ([facility]) [address] [place], [address], 01/17/2020 04:35:55 01/16/20 20 01/17/2020 CBC w/ auto diff baso (absolute) 0.0 x10e3 /uL 0.0-0. 2 Not Available [facility] ([facility]) [address] [place], [address], 01/17/2020 04:35:55 01/16/20 20 01/17/2020 CBC w/ auto diff immature granulocytes 0 % not estab. Not Available [facility] ([facility]) [address] [facility], [address], 01/17/2020 04:35:55 01/16/20 20 01/17/2020 CBC w/ auto diff immature grans (abs) 0.0 x10e3 /uL 0.0-0. 1 Not Available [facility] ([facility]) [address] [facility] [place], [address], 01/17/2020 04:35:55 01/16/20 20 01/17/2020 CBC w/ auto diff NRBC WALLPAPER PRINTER Not Available [facility] ([facility]) [address] [facility], [address], 01/17/2020 04:35:55 01/16/2001/17/2020 CBC w/ auto diff hematology comments: WALLPAPER PRINTER Not Available [facility] ([facility]) [address] [facility], [address], 01/17/2020 04:35:55 01/16/20 20 01/17/2020 CMP, serum or plasm a glucose 98 mg/dL 65-99 Not Available [facility] ([facility]) [address] [place], [address], 01/17/2020 04:35:56 01/16/2001/17/2020 CMP, serum or plasm a BUN 19 mg/dL 8-27 Not Available [facility] ([facility]) [address] [facility], [address], 01/17/2020 04:35:56 01/16/2001/17/2020 CMP, serum or plasm a creatinine 0.98 mg/dL 0.57-1 .00 Not Available [facility] ([facility]) [address] [place], [address], 01/17/2020 04:35:56 01/16/20 20 01/17/2020 CMP, serum or plasm a eGFR if nonafricn AM 62 mL/mi n/1.7 3 >59 Not Available [facility] ([facility]) [address] [place], [address], 01/17/2020 04:35:56 01/16/20 20 01/17/2020 CMP, serum or plasm a eGFR if africn AM 72 mL/mi n/1.7 3 >59 Not Available [facility] ([facility]) [address] [place], [address], 01/17/2020 04:35:56 01/16/20 20 01/17/2020 CMP, serum or plasm a BUN/creatini ne ratio 19 12-28 Not Available [facility] ([facility]) [address] [place], [address], 01/17/2020 04:35:56 01/16/20 20 01/17/2020 CMP, serum or plasm a sodium 140 mmol/ L 134-14 4 Not Available [facility] ([facility]) [address] [place], [address], 01/17/2020 04:35:56 01/16/20 20 01/17/2020 CMP, serum or plasm a potassium 4.6 mmol/ L 3.5-5. 2 Not Available [facility] ([facility]) [address] [place], [address], 01/17/2020 04:35:56 01/16/20 20 01/17/2020 CMP, serum or plasm a chloride 103 mmol/ L 96-106 Not Available [facility] ([facility]) [address] [place], [address], 01/17/2020 04:35:56 01/16/20 20 01/17/2020 CMP, serum or plasm a carbon dioxide, total 22 mmol/ L 20-29 Not Available [facility] ([facility]) [address] [facility] [place], [address], 01/17/2020 04:35:56 01/16/2001/17/2020 CMP, serum or plasm a calcium 9.8 mg/dL 8.7-10 .3 Not Available [facility] ([facility] [address] [facility] [place], [address], 01/17/2020 04:35:56 01/16/2001/17/2020 CMP, serum or plasm a protein, total 6.8 g/dL 6.0-8. 5 Not Available [facility] ([facility]) [address] [facility] [place], [address], 01/17/2020 04:35:56 01/16/20 20 01/17/2020 CMP, serum or plasm a albumin 4.3 g/dL 3.8-4. 8 Not Available [facility] ([facility]) [address] [facility], [address], 01/17/2020 04:35:56 01/16/2001/17/2020 CMP, serum or plasm a globulin, total 2.5 g/dL 1.5-4. 5 Not Available [facility] ([facility]) [address] [facility] [place], [address], 01/17/2020 04:35:56 01/16/2001/17/2020 CMP, serum or plasm a A/G ratio 1.7 1.2-2. 2 Not Available [facility] ([facility]) [address] [facility] [place], [address], 01/17/2020 04:35:56 01/16/2001/17/2020 CMP, serum or plasm a bilirubin, total 0.5 mg/dL 0.0-1. 2 Not Available [facility] ([facility]) [address] [facility] [place], [address], 01/17/2020 04:35:56 01/16/20 20 01/17/2020 CMP, serum or plasm a alkaline phosphatase 72 IU/L 39-117 Not Available [facility]) [address] [facility], [address], 01/17/2020 04:35:56 01/16/20 20 01/17/2020 CMP, serum or plasm a AST (SGOT) 19 IU/L 0-40 Not Available [facility] ([facility]) [address] [facility], [place], [address], 01/17/2020 04:35:56 01/16/20 20 01/17/2020 CMP, serum or plasm a ALT (SGPT) 28 IU/L 0-32 Not Available [facility] ([facility]) [address] [facility], [place], [address], 01/17/2020 04:35:56 01/16/20 20 01/17/2020 lipid panel , serum cholesterol, total 157 mg/dL 100-19 9 Not Available [facility] ([facility]) [address] [place], [address], 01/17/2020 04:35:57 01/16/20 20 01/17/2020 lipid panel , serum triglyceride s 108 mg/dL 0-149 Not Available [facility] ([facility]) [address] [place] [place], [address], 01/17/2020 04:35:57 01/16/20 20 01/17/2020 lipid panel , serum HDL cholesterol 51 mg/dL >39 Not Available [facility]) [address] [place], [address], 01/17/2020 04:35:57 01/16/20 20 01/17/2020 lipid panel , serum VLDL cholesterol lisseth 20 mg/dL 5-40 Not Available [facility] ([facility]) [address] [place], [address], 01/17/2020 04:35:57 01/16/20 20 01/17/2020 lipid panel , serum LDL chol calc ([facility]) 86 mg/dL 0-99 Not Available [facility] ([facility]) [address] [facility], [place], [address], 01/17/2020 04:35:57 01/16/20 20 01/17/2020 lipid panel , serum comment: [employer] Not Available [facility] ([facility]) [address] [facility], [place], [address], 01/17/2020 04:35:57 01/16/20 20 01/17/2020 HbA1c (hemo globi n A1c), blood hemoglobin A1C 6.4 % 4.8-5. 6 above high normal Predi abete s: 5.7 - 6.4 Diabe jennifer: >6.4 Glyce ran contr ol for adult s with diabe jennifer: <7.0 Not Available [facility] ([facility]) [address] [facility], [place], [address], 01/17/2020 04:35:57 01/16/20 20 01/17/2020 TSH, ultra -sens itive , serum TSH 2.360 uIU/m L 0.450- 4.500 Not Available [facility] ([facility]) [address] [place], [address], 01/17/2020 04:35:58 02/19/19 21 02/20/2020 gluco se, finge rstic k, blood Blood Glucose: mg/dl 200 Not Available [facility] [address] [place], [address], 02/20/2020 12:53:36 07/18/19 17 07/17/2016 CT, chest + abdom en + pelvi s, w/ contr ast No observ ation record ed. [address], [place], [address], 08/14/2016 08:56:18 07/18/19 17 07/17/2016 CT, chest + abdom en + pelvi s, w/wo contr ast No observ ation record ed. [email or web address] Not Available 08:56:18 09/15/19 17 09/11/2016 MAMMO , scree lucia, bilat eral No observ ation record ed. adal [address] , [place], [address], 09/30/2016 16:48:38 09/15/19 17 09/14/2016 MAMMO , scree lucia, bilat eral No observ ation record ed. [address] , [place], [address], 10/02/2016 09:11:08 07/20/19 18 07/01/2017 trans -thor acic echoc ardio gram (TTE) (PROC ) No observ ation record ed. [email or web address] Not Available 2017 08:23:46 09/15/19 18 09/14/2017 MAMMO , scree lucia, bilat eral No observ ation record ed. [address] , [place], [address], 09/15/2017 10:21:26 10/07/19 18 10/06/2017 US, echoc ardio gram, trans thora cic, compl ete No observ ation record ed. adal Batista [address] [place] [address], [place], [address], 10/06/2017 20:01:32 01/28/20 18 01/27/2018 CT, chest + abdom en + pelvi s, w/ contr ast No observ ation record ed. [address] , [place], [address], 01/31/2018 13:56:56 01/29/20 18 01/27/2018 CT, neck, soft tissu e, w/ contr ast No observ ation record ed. [email or web address], [place], [address], 01/31/2018 13:57:33 05/25/19 19 2018 XR, chest , 2 view No observ ation record ed. [address] , [place], [address], 2018 14:39:37 08/17/19 19 08/16/2018 MAMMO , scree lucia, bilat eral No observ ation record ed. [address], [place], [place], [address], 08/19/2018 09:30:43 08/16/19 20 08/16/2019 MAMMO , scree lucia, bilat eral No observ ation record ed. [address] , [place], [address], 08/17/2019 10:34:32 10/31/19 20 10/31/2019 US, echo ardio gram, trans thora cic, compl ete No observ ation record ed. [email or web address] [facility] [address] [facility], [place], [address], 10/31/2019 11:11:00 08/16/19 21 08/15/2020 MAMMO , scree lucia, bilat eral No observ ation record ed. [email or web address] Not Available 03/2020 08:02:20 01/23/20 21 01/20/2021 US, echoc ardio gram, trans thora cic, compl ete No observ ation record ed. [address] [facility] [address] [place] [address] , [place], [address], 01/23/2021 11:53:52 Result Notes None recorded. Problems Name Problem SNOMED Code Status Onset Date Resolution Date Notes Provider Name and Address Organization Details Recorded Time Lili de paz 869174251 Completed 201610/10/2019 left Lore Wall RN [address], [place], [address], [place] - [facility] 0 10:31:13 Malignan t neoplasm of breast 591809774 Completed 201610/10/2019 with lumpectom y and lymph gland removal Lore Wall RN [address], [place], [address], [place] [facility] 0 10:45:21 Unilater al mastecto my Completed 201608/14/2016 left Rachel Alegria null, [place] - [facility] 7 08:35:33 Essentia l hyperten melia 71108487 Active 2016 Rachel Alegria null, [place] - [facility] 7 08:25:41 Cellulit is of upper limb 925034047 Completed 201712/20/2018 Lore Wall RN [address], [place], [address], [place] [facility] 9 08:45:05 Mitral valve prolapse 815375304 Active 2019 Lore Wall RN [address], [place], [address], [place] [facility] 0 10:31:37 History of malignan t neoplasm of breast 326078248 Active 2019 left side/NO BP ON LEFT SIDE Lore Wall RN [address], [place], [address], [place] [facility] 0 10:47:38 Lymphade nopathy 15912257 Active 2019 left upper extremity Lore Wall RN [address], [place], [address], [place] [facility] 0 10:54:41 Tachycar marcela 1947251 Active 2019 Lauren Nasir null, [place] - [facility] 0 14:10:44 Lymphede ma of upper arm 912606336 Active 2019 Kranthiizabella Frias null, [place] - [facility] 0 14:36:56 Diabetes mellitus 47137332 Active 2020 Lauren Nasir null, [place] - [facility] 12:52:59 Problem Notes None recorded. Procedures Surgical History Date Name Laterality Status Provider Name and Address Organization Details Recorded Time 1 Systolic B/P less than 130 mm Hg completed Lauren Nasir [place] - [facility] 02/20/2020 12:53:18 1 Diastolic B/P less than 80 mm Hg completed Lauren Nasir [place] [facility] 02/20/2020 12:53:21 0 Systolic B/P less than 130 mm Hg completed Lauren Nasir [place] [facility] 01/16/2020 09:35:24 0 Diastolic B/P less than 80 mm Hg completed Lauren Nasir [place] [facility] 01/16/2020 09:35:27 0 Systolic B/P less than 130 mm Hg completed Lauren Nasir [place] [facility] 10/10/2019 14:12:21 0 Diastolic B/P less than 80 mm Hg completed Lauren Nasir [place] [facility] 10/10/2019 14:12:25 0 Most Recent Mammogram completed Lore Wall RN [address], [place], [address], [place] [facility] 10/10/2019 10:49:48 0 Date of Last Mammogram completed Lore Wall RN [address], [place], [address], [place] [facility] 10/10/2019 10:43:58 7 Date of Last Colonoscopy completed Lore Wall RN [address], [place], [address], [place] [facility] 10/10/2019 10:49:08 7 Colonoscopy completed Lore Wall RN [address], [place], [address], [place] [facility] 10/10/2019 10:50:30 excision of lymph node completed Lore Wall RN [address], [place], [address], [place] [facility] 10/10/2019 10:51:42 delivery completed Kranthi Frias [place] - [facility] 10/10/2019 14:32:15 laparoscopy completed Kranthi Frias [place] [facility] 10/10/2019 14:32:46 Breast Lumpectomy completed Rachel Alegria [place] - [facility] 08/14/2016 08:35:00 Imaging Results None recorded. Procedure Notes None recorded. Medical Equipment None Reported. Allergies Allergen ID Allergen Name Allergen Category Reaction Reaction Severity Criticality Documentation Date Start Date Code Code System Note Provider Name and Address Organization Details Recorded Time 42182 Substance with sulfonami de structure and antibacte rial mechanism of action (substanc e) medicatio n arthralgi a (joint pain) Not available Not available 11/22/20152007 38447 8003 SNOMED React ion: joint pain; Not Available [facility] 6 09:31:15 73987 erythromy hanna medicatio n rash Not available Not available 11/22/20152007 4053 RxNorm React ion: rash; Not Available [facility] 6 09:54:54 10313 Product containin g penicilli n (product) medicatio n rash Not available Not available 11/22/20152007 27959 8001 SNOMED React ion: rash; Not Available [facility] 6 09:54:54 Medications Name Sig Start Date Stop Date Status Note LastModified by Organization Details LastModified Time doxycycli ne hyclate 100 mg capsule Take 1 capsule twice a day by oral route. 10/09 completed Not Available Not Available Not Available carvedilo l 12.5 mg tablet TAKE 1 TABLET BY MOUTH TWICE DAILY active Not Available Not Available No t Available torsemide 10 mg tablet Take 1 tablet every day by oral route as needed for 30 days. active Not Available Not Available No t Available promethaz ine 6.25 mg-codein e 10 mg/5 mL syrup take 5 millilit ers by oral route every 6 hours as needed, not to exceed 30 mL in 24 hours for 10 days 02/19 completed prometha zine-cod eine 6.25-10 mg/5 mL oral syrup;Re corded Status: Recorded on: 02/10/20 14 6:40PM;U ser: neuss;Es t. Completi on: 02/19/19 15;Indic ation: Cough - (16.7862 00) Not Available Not Available Not Available spironola ctone 25 mg tablet TAKE 1 2 (ONE HALF) TABLET BY MOUTH ONCE DAILY active Not Available Not Available No t Available biotin 10,000 mcg capsule Take 1 capsule every day by oral route. active Not Available Not Available No t Available lisinopri l 10 mg tablet TAKE 1 TABLET BY MOUTH ONCE DAILY active Not Available Not Available No t Available mupirocin 2 % topical ointment Apply 1 applicat ion 3 times a day by topical route for 5 days. active Not Available Not Available No t Available levofloxa hanna 750 mg tablet 10/09 completed Not Available Not Available Not Available doxycycli ne hyclate 100 mg tablet 10/09 completed Not Available Not Available Not Available Hibiclens 4 % topical liquid Apply 1 applicat ion every other day by topical route for 14 days. 2019 active Not Available Not Available Not Avai lable biotin 500 mcg capsule Take 2 capsules by oral route. 01/15 completed Not Available Not Available Not Available Vitamin D3 25 mcg (1,000 unit) capsule Take 1 capsule every day by oral route. active Not Available Not Available No t Available vitamin B12 0.5 mg-folic acid 1 mg tablet Take 1 tablet every day by oral route. active Not Available Not Available No t Available Bystolic 5 mg tablet take 0.5 tablet by oral route daily 11/15 completed Bystolic 5 mg oral tablet;R ecorded Status: Recorded on: 07/21/19 12 9:40AM;D iscontin ued Status: Disconti nued on: 11/16/19 13 11:33AM; User: [email or web address]; EstElmer Completsaranya on: 06/07/19 12;Indic ation: Hyperten melia - (07.4019 00) Not Available Not Available Not Available multivit with min-folic acid 1 po qd 07/06 completed Not Available Not Available Not Available biotin 1,000 mcg chewable tablet Take 1 tablet every day by oral route. 10/09 completed Not Available Not Available Not Available Vitals Date Recorded Body height Body mass index (BMI) Body weight Body temperature Oxygen saturation Oxygen saturation in Arterial blood by Pulse oximetry Heart rate Systolic And Diastolic Provider Name and Address Organization Details Last Updated DateTime 1 172.72 cm 28.7 kg/m2 32365.9 6 g 97.4 [degF] 96 % 96 % 68 /min 123/76 mm[Hg] Lauren Nasir [place] - [facility] 1 12:52:28 Date Recorded Body height Body mass index (BMI) Body weight Heart rate Oxygen saturation Oxygen saturation in Arterial blood by Pulse oximetry Systolic And Diastolic Provider Name and Address Organization Details Last Updated DateTime 8 172.72 cm 28 kg/m2 72896 g 90 /min 97 % 97 % 104/70 mm[Hg] Awilda Miner [place] - [facility] 8 08:10:54 Date Recorded Body height Body mass index (BMI) Body weight Heart rate Respiratory rate Systolic And Diastolic Provider Name and Address Organization Details Last Updated DateTime 7 172.72 cm 27.2 kg/m2 64829.0 3 g 72 /min 18 /min 118/58 mm[Hg] Rachel Alegria [place] - [facility] 7 08:23:18 Date Recorded Body height Body mass index (BMI) Body weight Body temperature Heart rate Oxygen saturation Oxygen saturation in Arterial blood by Pulse oximetry Systolic And Diastolic Provider Name and Address Organization Details Last Updated DateTime 0 172.72 cm 27.8 kg/m2 81994.4 g 98 [degF] 77 /min 97 % 97 % 118/62 mm[Hg] Lauren Nasir [place] - [facility] 0 14:06:47 Date Recorded Body height Body mass index (BMI) Body weight Body temperature Heart rate Oxygen saturation Oxygen saturation in Arterial blood by Pulse oximetry Systolic And Diastolic Provider Name and Address Organization Details Last Updated DateTime 0 172.72 cm 29 kg/m2 34172.1 4 g 98.3 [degF] 75 /min 96 % 96 % 126/66 mm[Hg] Lauren Nasir [place] - [facility] 0 09:33:39 Social History Question Answer Notes LastModified by Organizat ion Details LastModified Time Tobacco Smoking Status Never Smoker Rachel Alegria [facility], [place] - [facility] 08/14/2016 08:31:04 Able To Swim? No [email or web address] Information not available 08/14/2016 Do You Have An Advance Directive? Yes Information not available 10/10/2019 Are You Blind Or Do You Have Difficulty Seeing? No [email or web address] Information not available 08/14/2016 What Is Your Level Of Caffeine Consumption? Moderate [email or web address] Information not available 08/14/2016 Are You Deaf Or Do You Have Serious Difficulty Hearing? No Information not available 08/14/2016 What Type Of Diet Are You Following? REGULAR [email or web address] Information not available 08/14/2016 Which Illicit Or Recreational Drugs Have You Used? Never [email or web address] Information not available 08/14/2016 Swimming/diving No [email or web address] Informati on not available 08/14/2016 Hard Of Hearing Or Deaf In One Or Both Ears? No [email or web address] Information not available 08/14/2016 Single Or Multi-level Home/work? Multi Level Home Information not available 08/14/2016 Legally Blind In One Or Both Eyes? No [email or web address] Information no t available 08/14/2016 Live Alone Or With Others? With Others Information not available 10/10/2019 Marital Status [email or web address] Informatio n not available 08/14/2016 What Was The Date Of Your Most Recent Tobacco Screening? 01/16/2020 Information not available 01/16/2020 How Many Children Do You Have? 3 [email or web address] Information not available 08/14/2016 What Is Your Relationship Status? [email or web address] Information not available 08/14/2016 Seat Belts Used Routinely Yes [email or web address] Information not available 08/14/2016 Smoke Alarm In Home Yes [email or web address] Information not available 08/14/2016 How Much Tobacco Do You Smoke? No [email or web address] Information not available 07/06/2017 General Stress Level Low Information not available 10/10/2019 Do You Use Sunscreen Routinely? Yes [email or web address] Information not available 08/14/2016 How Many Years Have You Smoked Tobacco? 0 [email or web address] Information not available 07/06/2017 Do You Have Difficulty Walking Or Climbing Stairs? No [email or web address] Information not available 08/14/2016 Sex: Female Functional Status Question Answer Note LastModified by Organizat ion Details LastModified Time What is your level of alcohol consumption? Occasional [email or web address] Information not available 08/14/2016 Are you currently employed? Yes [email or web address] Information not available 08/14/2016 Urinary incontinence assessment performed? Yes [email or web address] Information not available 08/14/2016 Are you able to walk independently without assistance or assistive devices? YESWOREST [email or web address] Information not available 08/14/2016 Do you have difficulty doing errands alone? No [email or web address] Information not available 08/14/2016 Are you able to care for yourself independently? 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 No [email or web address] Information not available 08/14/2016 What is your exercise level? Moderate Information not available 10/10/2019 Mental Status Question Answer Note LastModified by Organization D etails LastModified Time Do you have difficulty concentrating, remembering or making decisions? No Information no t available 08/14/2016 Family History Relationship Description Onset Age of this Age Resolved Age Notes LastModified by Organization Details LastModified Time Mother Chronic atrial fibrillation [email or web address] Not available 08:28:12 Mother Hypertensive disorder [email or web address] Not available 2016 08:28:21 Father Coronary arterioscler osis [email or web address] Not available 2016 08:28:31 Father Carotid atherosclero sis [email or web address] Not available 2016 08:29:04 Father Coronary artery bypass graft [email or web address] Not available 08:29:17 Brother Hypertensive disorder Not available 2016 08:29:30 Paternal Grandmother Malignant neoplasm of breast [email or web address] Not available 2016 08:29:53 Paternal Aunt Malignant neoplasm of breast [email or web address] Not available 2016 08:29:53 Paternal Uncle Malignant neoplasm of lung [email or web address] Not available 2016 08:30:08 Unspecified Relation Malignant neoplastic disease severa l on dad's side [email or web address] Not available 08/14/2016 08:30:31 Medical History Condition Response Mitral Valve Disorders Y Hypertension Y Breast Cancer Y Gynecological History Statement/Question Response Abnormal Pap N Date of Last Colonoscopy 09/25/2016 Date of Last Mammogram 08/16/2019 Most Recent Bone Density Date of Last Pap Smear Most Recent Mammogram 09/04/2019 Obstetrics History GPAL:G 3 P 0 3 0 3 Type Value Multiple Births 1 Premature 3 Living 3 Total 3 Immunizations Vaccine Type Date Status Note Provider Nam e and Address Organization Details Recorded Time Tdap 7 completed Not Available [facility] 03/04/2019 03:54:32 Influenza, split virus, quadrivalent, preservative 0 completed Lauren Nasir null, [place] - [facility] 01/16/2020 10:33:05 influenza, unspecified formulation 8 completed Not Available [facility] 03/18/2019 02:21:29 influenza, unspecified formulation 4 completed Not Available [facility] 03/18/2019 02:21:29 Influenza, split virus, quadrivalent, preservative 9 completed Lauren Nasir null, [place] - [facility] 10/10/2019 14:10:03 Past Encounters Encounter ID Performer Location Encounter Start Date Encounter Closed Date Diagnosis/Indication Diagnosis SNOMED-CT Code Diagnosis ICD10 Code Diagnosis IMO Codes Diagnosis Note [id number] Demetrius Carmona MD [place] [address] [place] [address] 08/14/2016 08:01:33 08/14/2016 09:56:23 General examination of patient 728766990 Z00.00 Screening mammography 24 919885 Z12.31 Hyperlipid emia screening 726140372 Z13.220 Body mass index 25-29 - overweight 460303766 Z68.27 Administra tion of diphtheria, pertussis, and tetanus vaccine 553551731 Z23 Screening for malignant neoplasm of colon 815832544 Z12.11 Essential hypertension 06176948 I10 Viral screening 43577616 4 Z11.59 Endocrine/ metabolic screening 002281723 Z13.514 [id number] Tanya Lopez APRN [place] [address] [place] [address] 07/06/2017 07:55:11 07/06/2017 09:02:50 Cellulitis of upper limb 409315364 L03.119 Essential hypertension 69656858 I10 [id number] Kranthi Frias MD [place] [address] [place] [place] [address] 10/10/2019 13:43:38 10/10/2019 15:09:18 Body mass index 25-29 - overweight 227371085 Z68.27 Essential hypertension 89662809 I10 History of malignant neoplasm of breast 902131956 Z85.3 Lymphedema of upper arm 405822651 I89.0 Recurrent cellulitis 698 435461 L03.90 [id number] Kranthi Frias MD [address] [place] [address] 01/16/2020 09:09:41 01/16/2020 10:27:27 Essential hypertension 98083254 I10 Lymphedema of upper arm 771954438 I89.0 Mitral valve prolapse 40 2213145 I34.1 General ex amination of patient 732300835 Z00.00 Screening for cardiovascular system disease 467616959 Z13.6 Endocrine/ metabolic screening 518326084 Z13.228 Exercises education, guidance, and counseling 192179799 Z71.82 Dietary ma nagement surveillance 310107704 Z71.3 Administra tion of influenza vaccine 06806181 Z23 Body mass index 25-29 - overweight 745260923 Z68.29 [id number] Kranthi Frias MD [address] [place] [address] 02/20/2020 12:38:40 02/20/2020 13:33:00 Diabetes mellitus 25710911 E11.9 Hyperglycemia 59165894 R 73.9 Health Concerns Section Related Observation LastModified by Organization Detai ls LastModified Time None Recorded Concern Status LastModified by Organization Details LastModified Time None Recorded Advance Directives Directive Y: Payers Insurance Date Sequence Insurance Name Policy Number Policy Barrera Covered Member ID Barrera Member ID Guarantor Name 04/15/2020 1 [place] [id number] Quinton Carver [id number] Ginny Carver 10/10/2019 1 [place] [id number] Quinton Carver [id number] Ginny Carver Notes Date Note Type Note Provider Name and Address Organization Details Recorded Time 08/14/2016 text/html Medicare Annual Wellness VisitReported by PatientSocial/Behavio ral HistoryFor diet and nutrition, patient reportshealthy diet,discussed vitamin and supplement use,discussed portion control, anddiscussed maintaining calcium balance. For fracture risk, patient reportsno history of fractures,no recent explained fracture,no sudden unexplained fractures, andno previous musculoskeletal injuries. For physical activity, patient reportsgood physical condition(does walk but no routine program).Mental Status:For depression risk, patient reportsnever feels sad, empty, or tearful,no loss of interest in activities,no significant changes in weight,no sleep disturbances or insomnia,no loss of energy,no feelings of worthlessness or guilt,no thoughts of suicide,no history of depression, andno history of mood disorders. For concentration and memory, patient reportsno decreased concentrating ability,no memory lapses or loss, anddoes not forget words. For speech/motor difficulties, patient reportsno speech difficulties,no difficulty expressing formulated concepts,no difficulty with fine manipulative tasks,no difficulty writing/copying,no slowed reaction time, anddoes not knock things over when trying to pick them up.Functional AbilityFor hearing, patient reportsno loss of hearing. For vision, patient reportsno vision problems. For activities of daily living, patient reportsable to bathe with limited or no assistance,able to contol urination and bowels,able to dress with limited or no assistance,able to feed self with limited or no assistance,able to get out of chair or bed with limited or no assistance,able to groom with limited or no assistance, andable to toilet with limited or no assistance. For instrumental activities of daily living, patient reportsable to do house work with limited or no assistance,able to grocery shop with limited or no assistance,able to manage medications with limited or no assistance,able to manage money with limited or no assistance,able to prepare meals with limited or no assistance, andable to use the phone with limited or no assistance. For falls risk assessment, patient reportsno frequent falls while walking,no fall in the past year,no fall since last visit, andno dizziness/vertigo. For home safety, patient reportsno unsafe ibrahima hazzards,no unsafe stairs,no unsafe gas appliances,working smoke/co detectors,use of seatbelts,no vision or hearing loss while driving,has hand bars in the bathroom/shower, andgood lighting in the home. Aga [place], [place] - [facility] 08/14/2016 13:51:42 07/06/2017 text/html Hospitalization Contact RecordReported by Patient Emergency Department Follow-Up RecordReported by Patient discharged home on 07/02/17. pt overall doing much better- states she is having no redness, warmth or itching. needs to f/u on recent blood culture results obtained prior to discharge. she has 2 days of po antibiotic levaquin left. Tanya [place], [place] - [facility] 07/06/2017 12:19:12 10/10/2019 text/html Hypertension F/UReported by PatientHPIFor associated symptoms, patient reportsedema (state her legs will occasionally swell. she takes torsemide for this but can only take 1/2 tab as it caused severe leg cramps.)but reportsno dizziness,no lightheadedness,no chest pain,no shortness of breath,no palpitations,no calf pain with exertion, andno headache(denies fatigue). For medications, patient reportstaking medications as directedandno side effects from medication. For lifestyle, patient reportsregular exercise,limiting/jamila iding salt, andcompliant with low salt diet.ROS as noted in the HPI FU for hospitalization for LUE cellulitis. States she has had this 2-3 times in the past. She has lymphedema of that arm due to lymph node removal for breast cancer. States she was treated with IV vancomycin. Kranthi molina, ELIESER - [facility] 10/10/2019 14:59:44 01/16/2020 text/html Hypertension F/UReported by PatientHPIFor medications, patient reportstaking medications as directedandno side effects from medication. For lifestyle, patient reportsregular exercise,limiting/jamila iding salt, andcompliant with low salt diet. For associated symptoms, patient reportsno dizziness,no lightheadedness,no chest pain,no shortness of breath,no palpitations,no edema,no calf pain with exertion, andno headache(denies fatigue).ROS as noted in the HPI Present for annual exam Kranthi molina, ELIESER - [facility] 01/16/2020 10:21:35 02/20/2020 text/html States she periodically checks her sugar at her Mom's on her dads old machine. States her sugar was 300 yesterday morning, after 10 hour fast. Denies any symptoms. Kranthi Frias null, [place] - [facility] 02/20/2020 13:18:51 OBGyn Episode No OBEpisode recorded.
== END 2024-12-21 23:59 ==
LOC: LAB.DROPOF 12-25 10:19
PROVIDERS: PCP Family Medicine; Visit Provider Family Medicine
DX: Z00.00 Encounter for general adult medical examination without abnormal findings (principal); I10 Essential (primary) hypertension; E11.9 Type 2 diabetes mellitus without complications
CPT/HCPCS: 80053; 80061; 85025